=== PATIENT | male | born 1990 | race Caucasian/White ===

== ENCOUNTER → 2019-12-30 | Outpatient (CLI) | payer BC ==
[~2019-12-30] MED LIST: LISD30CA PO
== END ==
LOC: LAB FS 11:15
PROVIDERS: ATTEND Family Medicine
DX: Z20.828 Contact with and (suspected) exposure to other viral communicable diseases (principal)
CPT/HCPCS: 87635

== ENCOUNTER → 2020-05-05 | Outpatient (CLI) | payer BC ==
--- NOTE | 2020-05-06 09:30 | NUR ---
Notified of positive COVID test.
== END ==
LOC: LAB FS 10:00
PROVIDERS: ATTEND Family Medicine
DX: U07.1 COVID-19 (principal)
CPT/HCPCS: 87635

== ENCOUNTER 2022-06-01 12:57 | Emergency (ER) | payer BC ==
[~2022-06-01] VITALS: Ht 190 cm; Wt 129.0 kg
--- NOTE | 2022-06-01 13:18 | ED Chest Pain ---
General Chief Complaint: General Problems/Pain Stated Complaint: TIGHTNESS IN CHEST Nursing Triage Note: Patient has presented to ER with cc of chest pain and a cough. Patient reports a slight cough the past 2 days, his chest is sore and the pain is worse when he leans forward or when he coughs. He states that it feels like he needs to cough something out. He has taken a 325mg aspirin this morning. (ELIZABETH BOX) History of Present Illness Date Seen by Provider: Jun 01, 2022 Time Seen by Provider: 13:05 Initial Comments 31 yo male with pmhx of Factor 5 Melissa presents to clinic with chief complaint of chest tightness since 2229 last night. Pt reports that he was laying in bed and felt a dull tightening in his substernal region. He took Aspirin 325mg at the onset. 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 Reports he got worried based on hx medical hx so went to urgent care at 11:00am. EKG was done at clinic and was unremarkable. Clinic told him they could not rule out blood clots or do a further workout due to lack of equipment and tests at facility. Pt says he is here for further workup to make sure nothing more is going on. Denies any SOB, N/V, abdominal pain, LONGO. Pt has no flu like sx. No sick contacts. Pt is adopted so does not know if there is an hx of cardiac related dz in his biological family. No other complaints. Severity/Quality: dull Location: substernal Activities at Onset: none (ELIZABETH BOX) Initial Comments Patient has prior history of DVT from factor V Leiden and therefore takes a full aspirin daily. He took an extra aspirin today. (AMANDA FLETCHER MD) Allergies and Home Medications Allergies Coded Allergies: No Known Drug Allergies (Unverified , 09/05/11) Patient Home Medication List Home Medication List Reviewed: Yes (ELIZABETH BOX) Lisdexamfetamine Dimesylate (Vyvanse) 30 Mg Capsule, 30 MG PO DAILY, (Reported) Entered as Reported by: FILIBERTO HERRON on 08/30/11 1312 Review of Systems Review of Systems Constitutional: no symptoms reported EENTM: No Symptoms Reported Respiratory: No Symptoms Reported Cardiovascular: Chest Pain Gastrointestinal: No Symptoms Reported Genitourinary: No Symptoms Reported Musculoskeletal: no symptoms reported Skin: no symptoms reported Psychiatric/Neurological: No Symptoms Reported Endocrine: No Symptoms Reported Hematologic/Lymphatic: No Symptoms Reported (ELIZABETH BOX) All Other Systems Reviewed Negative Unless Noted: Yes (ELIZABETH BOX) Past Oifodsm-Wtjkwc-Qosryi Hx Patient Social History Tobacco Use?: No Use of E-Cig and/or Vaping dev: No Substance use?: No Alcohol Use?: Yes Alcohol Frequency: Once in a while (ELIZABETH BOX) Past Medical History Reproductive Disorders: No (ELIZABETH BOX) Physical Exam Vital Signs Vital Signs - First Documented 06/01/22 13:10 Temp 36.0 Pulse 104 Resp 16 B/P (MAP) 135/95 (108) Pulse Ox 98 O2 Delivery Room Air (AMANDA FLETCHER MD) Vital Signs Capillary Refill : (ELIZABETH BOX) Height, Weight, BMI Height: '" Weight: lbs. oz. kg; 35.00 BMI Method: General Appearance: No Apparent Distress, WD/WN HEENT: PERRL/EOMI, TMs Normal, Normal ENT Inspection, Pharynx Normal Neck: Full Range of Motion, Normal Inspection, Non Tender, Supple Respiratory: Chest Non Tender, Lungs Clear, Normal Breath Sounds, No Accessory Muscle Use, No Respiratory Distress Cardiovascular: Regular Rate, Rhythm, No Edema, No Gallop, No JVD, No Murmur, Normal Peripheral Pulses Gastrointestinal: Normal Bowel Sounds, No Organomegaly, No Pulsatile Mass, Non Tender, Soft Extremity: Normal Capillary Refill, Normal Inspection, Normal Range of Motion, Non Tender, No Calf Tenderness, No Pedal Edema Neurologic/Psychiatric: Alert, Oriented x3, No Motor/Sensory Deficits, Normal Mood/Affect, narrow fabric calenderer II-XII Norm as Tested Skin: Normal Color, Warm/Dry Lymphatic: No Adenopathy (ELIZABETH BOX) Progress/Results/Core Measures Results/Orders Lab Results Laboratory Tests Test 06/01/22 14:15 Range/Units White Blood Count 14.1 H 4.3-11.0 10^3/uL Red Blood Count 4.92 4.30-5.52 10^6/uL Hemoglobin 14.2 13.3-17.7 g/dL Hematocrit 42 40-54 % Mean Corpuscular Volume 84 80-99 fL Mean Corpuscular Hemoglobin 29 25-34 pg Mean Corpuscular Hemoglobin Concent 34 32-36 g/dL Red Cell Distribution Width 13.5 10.0-14.5 % Platelet Count 431 H 130-400 10^3/uL Mean Platelet Volume 9.3 9.0-12.2 fL Immature Granulocyte % (Auto) 1 % Neutrophils (%) (Auto) 75 42-75 % Lymphocytes (%) (Auto) 19 12-44 % Monocytes (%) (Auto) 4 0-12 % Eosinophils (%) (Auto) 2 0-10 % Basophils (%) (Auto) 1 0-10 % Neutrophils # (Auto) 10.5 H 1.8-7.8 10^3/uL Lymphocytes # (Auto) 2.6 1.0-4.0 10^3/uL Monocytes # (Auto) 0.6 0.0-1.0 10^3/uL Eosinophils # (Auto) 0.2 0.0-0.3 10^3/uL Basophils # (Auto) 0.1 0.0-0.1 10^3/uL Immature Granulocyte # (Auto) 0.1 0.0-0.1 10^3/uL Neutrophils % (Manual) 78 % Lymphocytes % (Manual) 12 % Monocytes % (Manual) 2 % Eosinophils % (Manual) 4 % Basophils % (Manual) 1 % Band Neutrophils 3 % Prothrombin Time 14.0 12.2-14.7 SEC INR Comment 1.0 0.8-1.4 Activated Partial Thromboplast Time 34 24-35 SEC D-Dimer 1.34 H 0.00-0.49 UG/ML Sodium Level 138 135-145 MMOL/L Potassium Level 3.8 3.6-5.0 MMOL/L Chloride Level 102 98-107 MMOL/L Carbon Dioxide Level 25 21-32 MMOL/L Anion Gap 11 5-14 MMOL/L Blood Urea Nitrogen 6 L 7-18 MG/DL Creatinine 0.79 0.60-1.30 MG/DL Estimat Glomerular Filtration Rate 122 BUN/Creatinine Ratio 8 Glucose Level 112 H 70-105 MG/DL Calcium Level 9.6 8.5-10.1 MG/DL Corrected Calcium 9.2 8.5-10.1 MG/DL Magnesium Level 2.4 1.6-2.4 MG/DL Total Bilirubin 0.7 0.1-1.0 MG/DL Aspartate Amino Transf (AST/SGOT) 24 5-34 U/L Alanine Aminotransferase (ALT/SGPT) 28 0-55 U/L Alkaline Phosphatase 83 40-136 U/L Myoglobin < 21.0 <72.0 NG/ML Troponin I < 0.30 <0.30 NG/ML Total Protein 7.9 6.4-8.2 GM/DL Albumin 4.5 3.2-4.5 GM/DL Influenza Type A (RT-PCR) Not Detected Not Detecte Influenza Type B (RT-PCR) Not Detected Not Detecte SARS-CoV-2 RNA (RT-PCR) Not Detected Not Detecte (AMANDA FLETCHER MD) My Orders Orders - AMANDA FLETCHER MD Ondansetron Oral Dissolve Tab (Zofran (06/01/22 13:30) Lidocaine 2% Viscous 15 Ml (Xylocaine Vi (06/01/22 13:30) Antacid Suspension (Mylanta Suspension (06/01/22 13:30) Cbc With Automated Diff (06/01/22 14:06) Magnesium (06/01/22 14:06) Chest 1 View Ap/Pa Only (06/01/22 14:06) Ekg Tracing (06/01/22 14:06) Comprehensive Metabolic Panel (06/01/22 14:06) Myoglobin Serum (06/01/22 14:06) Protime With Inr (06/01/22 14:06) Partial Thromboplastin Time (06/01/22 14:06) Monitor-Rhythm Ecg Trace Only (06/01/22 14:06) Ed Iv/Invasive Line Start (06/01/22 14:06) Fibrin Degradation Products (06/01/22 14:06) Troponin I Fs (06/01/22 14:06) Covid 19 Inhouse Test (06/01/22 14:07) Influenza A And B By Pcr (06/01/22 14:07) Manual Differential (06/01/22 14:15) Ct Angio Chest W (06/01/22 15:28) Iohexol Injection (Omnipaque 350 Mg/Ml 1 (06/01/22 15:45) Received Contrast (Hold Metformin- Contr (06/01/22 15:45) Sodium Chloride Flush (Catheter Flush Sy (06/01/22 15:45) Ns (Ivpb) (Sodium Chloride 0.9% Ivpb Bag (06/01/22 15:45) (AMANDA FLETCHER MD) Medications Given in ED (AMANDA FLETCHER MD) Vital Signs/I&O 06/01/22 06/01/22 13:10 17:49 Temp 36.0 36.0 Pulse 104 92 Resp 16 16 B/P (MAP) 135/95 (108) 132/86 Pulse Ox 98 100 O2 Delivery Room Air Room Air (AMANDA FLETCHER MD) Blood Pressure Mean: 108 Progress Progress Note #1: Time: 14:41 Progress Note Patient was interviewed and examined by me along with MS 3. Symptoms were suspicious for GERD based on history. Trial of GI cocktail did not alleviate his pain. We are therefore pursuing further evaluation for chest pain including D-dimer given his history of prior DVT and factor V Leiden. EKG was unremarkable. Progress Note #2: Time: 15:59 Progress Note D-Dimer was elevated. CTA has been performed and report is pending. Progress Note #3: Progress Note Masses were seen in the chest on CT scan. This was discussed with Dr. Noble Bonilla who will see the patient in the clinic tomorrow to arrange further necessary work-up. See discharge instructions for further discussion. (AMANDA FLETCHER MD) Initial ECG Impression Date: Jun 01, 2022 Initial ECG Impression Time: 14:27 Initial ECG Rate: 96 Initial ECG Rhythm: Normal Sinus Initial ECG Intervals: Normal Initial ECG Impression: Normal Comment Normal sinus rhythm with no ST elevation or depression. No abnormal intervals or axis deviation. (AMANDA FLETCHER MD) Diagnostic Imaging Diagonstic Imaging: Xray Plain Films/CT/US/NM/MRI: chest Comments Chest x-ray viewed by me and report reviewed. See report below: NAME: GILBERTO LOPEZ [facility] REC#: [id number] PT STATUS: REG ER : 1990 PHYSICIAN: AMANDA FLETCHER MD ADMIT DATE: 06/01/22/ER FS Signed Date of Exam:06/01/22 CHEST 1 VIEW AP/PA ONLY EXAMINATION: Chest, one view. HISTORY: Chest tightness. COMPARISON: None available. FINDINGS: Abnormal contour of the right heart border. Heart size and pulmonary vasculature are otherwise normal. The lungs are clear without consolidation, pleural effusion, or pneumothorax. The osseous structures are intact. IMPRESSION: 1. Abnormal contour of the right heart border. This could be better evaluated with CT of the chest. 2. No other acute abnormality in the chest. Dictated by: Dictated on workstation # [id number] Dict: 06/01/22 1455 Trans: 06/01/22 1501 [id number] Interpreted by: TARA VAZQUEZ DO Electronically signed by: TARA VAZQUEZ DO 06/01/22 1501 Diagonstic Imaging: CT Plain Films/CT/US/NM/MRI: chest Comments CT angiogram of the chest viewed by me and report reviewed. See report below: NAME: GILBERTO LOPEZ [facility] REC#: [id number] PT STATUS: REG ER : 1990 PHYSICIAN: AMANDA FLETCHER MD ADMIT DATE: 06/01/22/ER FS Draft Date of Exam:06/01/22 CT ANGIO CHEST W PROCEDURE: CT angiography of the chest with contrast. TECHNIQUE: Multiple contiguous axial images were obtained through the chest after uneventful bolus administration of intravenous contrast. 3D reconstructed CTA MIP acquisitions were also performed. Auto Exposure Controls were utilized during the CT exam to meet ALARA standards for radiation dose reduction. INDICATION: Chest pain and elevated D-dimer. COMPARISON: No prior studies are available for comparison. FINDINGS: Evaluation of the pulmonary arterial system is without evidence of thromboembolism. No definite filling defects are seen within central, lobar or segmental branches. Thoracic aorta is normal in caliber. There is no dissection. There is a mass noted along the right heart border correlating with the abnormality noted on a recent chest radiograph. This is likely mediastinal. This measures approximately 7.8 cm cephalocaudal x 8 cm AP x 6.2 cm transverse. This does appear to be of somewhat low density centrally which may contain some fluid versus necrosis. There are some enlarged lymph nodes in the mediastinum in the right paratracheal location. A femi mass measures approximately 3.3 x 2.7 cm. There are several additional smaller but enlarged lymph nodes elsewhere in the mediastinum. There also appears to be right hilar lymphadenopathy measuring 2.6 cm. Left hilum is unremarkable. There may be some enlarged lymph nodes in the supraclavicular regions bilaterally, greatest on the left. No axillary lymphadenopathy is detected. There is no pericardial or pleural fluid identified. No pulmonary infiltrates, nodules or masses are detected. Upper abdomen is unremarkable. IMPRESSION: 1. No evidence of pulmonary embolism or acute aortic disease. 2. Abnormal soft tissue mass along the right heart border, correlating with the contour abnormality noted on today's chest radiograph. In addition, there are enlarged femi masses in the mediastinum and right hilum. Features are concerning for neoplastic or lymphomatous process. CT of the abdomen and pelvis may be useful to evaluate for additional sites of femi disease. Dictated on workstation # [id number] Dict: 06/01/22 1558 Trans: 06/01/22 1615 [id number] Interpreted by: KIANA JACOBS MD (AMANDA FLETCHER MD) Departure Impression Primary Impression: Chest pain Qualified Codes: R07.9 - Chest pain, unspecified Additional Impression: Atypical chest pain Disposition: 01 HOME, SELF-CARE Condition: Stable Departure-Patient Inst. Decision time for Depature: 17:45 (AMANDA FLETCHER MD) Referrals: TYRESE DUTTA MD (PCP/Family) Primary Care Physician SASHA BONILLA MD Patient Instructions: CT Scan, Chest Add. Discharge Instructions: Abnormalities were seen on your CT scan including masses in the chest. The exact cause of these masses is uncertain, but they could represent a neoplastic (potentially cancerous) processes such as lymphoma. For pain you may take Tylenol (acetaminophen) up to 1000 mg every 6 hours as needed and/or ibuprofen up to 600 mg every 6 hours as needed. Drink plenty of clear liquids to stay well-hydrated. Eat a well-balanced healthy diet to maximize your overall health. Expect a phone call from Dr. Bonilla at the [facility] tomorrow morning between 9:00 and 10:00. If you do not hear from her by that time, please call the cancer center at the number below. She would like to arrange an appointment time for you to see her tomorrow. Return to the emergency room if you have worsening or new symptoms such as vomiting, escalating pain, fever, shortness of breath, etc. Also schedule an appointment with your primary care provider to keep her updated. All discharge instructions reviewed with patient and/or family. Voiced understanding. Medical Student Attestation and Attending Note: I have personally interviewed and examined this patient along with Elizabeth Box, MS 3. I have reviewed student documentation including history, physical, and ass essments. I agree with the documentation except where otherwise noted. Exam: General: Alert, oriented, no acute distress, well developed HEENT: Normocephalic and atraumatic Heart: Regular rate and rhythm without murmur, chest nontender to palpation Lungs: Clear to auscultation bilaterally with normal effort Abdomen: Soft, nontender, nondistended, normal bowel sounds Neuropsych: Alert, oriented, no focal deficits Extremities: No edema, no calf tenderness Skin: Warm and dry without rashes (AMANDA FLETCHER MD) Copy Copies To 1: SASHA BONILLA MD Copies To 2: TYRESE DUTTA MD, ANISHA T Jun 01, 2022 13:18 AMANDA FLETCHER MD Jun 01, 2022 14:44
[2022-06-01] MEDS ORDERED: ANTACID SUSP 30 ML UDC (MYLANTA) PO ONE (13:30)
[2022-06-01] MEDS ORDERED: ONDANSETRON 4 MG (ZOFRAN) ORAL DISSOLVE TAB SL STA (13:30)
[2022-06-01] MEDS ORDERED: LIDOCAINE 2% VISCOUS 15 ML UDC PO ONE (13:30)
[2022-06-01 14:21] LABS: BASOPHILS # (AUTO) 0.1 10^3/uL (0.0-0.1); BASOPHILS % (AUTO) 1 % (0-10); EOSINOPHILS # (AUTO) 0.2 10^3/uL (0.0-0.3); EOSINOPHILS % (AUTO) 2 % (0-10); HEMATOCRIT 42 % (40-54); HEMOGLOBIN 14.2 g/dL (13.3-17.7); LYMPHOCYTES # (AUTO) 2.6 10^3/uL (1.0-4.0); LYMPHOCYTES % (AUTO) 19 % (12-44); MEAN CORPUSCULAR HEMOGLOBIN 29 pg (25-34); MEAN CORPUSCULAR HGB CONC 34 g/dL (32-36); MEAN CORPUSCULAR VOLUME 84 fL (80-99); MEAN PLATELET VOLUME 9.3 fL (9.0-12.2); MONOCYTES # (AUTO) 0.6 10^3/uL (0.0-1.0); MONOCYTES % (AUTO) 4 % (0-12); NEUTROPHILS # (AUTO) 10.5 10^3/uL (1.8-7.8); NEUTROPHILS % (AUTO) 75 % (42-75); PLATELET COUNT 431 10^3/uL (130-400); WHITE BLOOD COUNT 14.1 10^3/uL (4.3-11.0)
[2022-06-01 14:43] LABS: CARBON DIOXIDE 25 MMOL/L (21-32); CHLORIDE 102 MMOL/L (98-107); POTASSIUM 3.8 MMOL/L (3.6-5.0); SODIUM 138 MMOL/L (135-145)
[2022-06-01 14:44] LABS: ALANINE AMINOTRANSFERASE 28 U/L (0-55); ALBUMIN 4.5 GM/DL (3.2-4.5); ALKALINE PHOSPHATASE 83 U/L (40-136); BILIRUBIN,TOTAL 0.7 MG/DL (0.1-1.0); BUN/CREATININE RATIO 8; CALCIUM 9.6 MG/DL (8.5-10.1); CREATININE SERUM 0.79 MG/DL (0.60-1.30); GFR ESTIMATED 122; GLUCOSE 112 MG/DL (70-105); MAGNESIUM 2.4 MG/DL (1.6-2.4); TOTAL PROTEIN 7.9 GM/DL (6.4-8.2)
[2022-06-01 14:54] LABS: BAND NEUTROPHILS 3 %; LYMPHOCYTES % (MANUAL) 12 %; MONOCYTES % (MANUAL) 2 %; NEUTROPHILS % (MANUAL) 78 %
[2022-06-01 14:55] LABS: BASOPHILS % (MANUAL) 1 %; EOSINOPHILS % (MANUAL) 4 %
--- NOTE | 2022-06-01 14:58 | Diagnostic Imaging Report ---
EXAMINATION: Chest, one view. HISTORY: Chest tightness. COMPARISON: None available. FINDINGS: Abnormal contour of the right heart border. Heart size and pulmonary vasculature are otherwise normal. The lungs are clear without consolidation, pleural effusion, or pneumothorax. The osseous structures are intact. IMPRESSION: 1. Abnormal contour of the right heart border. This could be better evaluated with CT of the chest. 2. No other acute abnormality in the chest. Dictated by: Dictated on workstation # [id number]
[2022-06-01] MEDS ORDERED: HOLD METFORMIN - RECEIVED CONTRAST 20 ML VIAL IV SCH (15:45)
[2022-06-01] MEDS ORDERED: CATHETER FLUSH 10 ML SYR IV PRN (15:45)
[2022-06-01] MEDS ORDERED: NS 100 ML (IVPB) BAG IV ONE (15:45)
[2022-06-01] MEDS ORDERED: IOHEXOL 350 MG/ML 100 ML (OMNIPAQUE 350) VIAL IV ONE (15:45)
--- NOTE | 2022-06-01 16:16 | Diagnostic Imaging Report ---
PROCEDURE: CT angiography of the chest with contrast. TECHNIQUE: Multiple contiguous axial images were obtained through the chest after uneventful bolus administration of intravenous contrast. 3D reconstructed CTA MIP acquisitions were also performed. Auto Exposure Controls were utilized during the CT exam to meet ALARA standards for radiation dose reduction. INDICATION: Chest pain and elevated D-dimer. COMPARISON: No prior studies are available for comparison. FINDINGS: Evaluation of the pulmonary arterial system is without evidence of thromboembolism. No definite filling defects are seen within central, lobar or segmental branches. Thoracic aorta is normal in caliber. There is no dissection. There is a mass noted along the right heart border correlating with the abnormality noted on a recent chest radiograph. This is likely mediastinal. This measures approximately 7.8 cm cephalocaudal x 8 cm AP x 6.2 cm transverse. This does appear to be of somewhat low density centrally which may contain some fluid versus necrosis. There are some enlarged lymph nodes in the mediastinum in the right paratracheal location. A femi mass measures approximately 3.3 x 2.7 cm. There are several additional smaller but enlarged lymph nodes elsewhere in the mediastinum. There also appears to be right hilar lymphadenopathy measuring 2.6 cm. Left hilum is unremarkable. There may be some enlarged lymph nodes in the supraclavicular regions bilaterally, greatest on the left. No axillary lymphadenopathy is detected. There is no pericardial or pleural fluid identified. No pulmonary infiltrates, nodules or masses are detected. Upper abdomen is unremarkable. IMPRESSION: 1. No evidence of pulmonary embolism or acute aortic disease. 2. Abnormal soft tissue mass along the right heart border, correlating with the contour abnormality noted on today's chest radiograph. In addition, there are enlarged femi masses in the mediastinum and right hilum. Features are concerning for neoplastic or lymphomatous process. CT of the abdomen and pelvis may be useful to evaluate for additional sites of femi disease. Dictated by: Dictated on workstation # [id number]
[2022-06-01 17:49] VITALS: BP 132/86
== END 2022-06-01 17:51 | disposition home or self-care (01) ==
LOC: EDUNIT# 12:57 → ER FS 13:00
DX: R07.89 Other chest pain (principal); I82.409 Acute embolism and thrombosis of unspecified deep veins of unspecified lower extremity; D68.51 Activated protein C resistance; Z79.82 Long term (current) use of aspirin; Z20.822 Contact with and (suspected) exposure to COVID-19
CPT/HCPCS: 36415; 71045; 71275; 80053; 83735; 83874; 84484; 85007; 85027; 85379; 85610; 85730; 87636; 93005; 93041; Q9967

== ENCOUNTER 2022-06-02 11:17 | Outpatient (RCR) | payer BC ==
[~2022-06-02 11:17] MED LIST changes: -CATHETER FLUSH 10 ML SYR IV PRN; -HOLD METFORMIN - RECEIVED CONTRAST 20 ML VIAL IV SCH; -IOHEXOL 350 MG/ML 100 ML (OMNIPAQUE 350) VIAL IV ONE; -NS 100 ML (IVPB) BAG IV ONE
[2022-06-07] MEDS ORDERED: ASPI-808 PO (09:25)
[2022-06-08] MEDS ORDERED: DOCU-143 PO (15:26)
[2022-06-08] MEDS ORDERED: ACHD5005 PO (15:26)
== END 2022-06-17 | disposition home or self-care (01) ==
LOC: ONC 11:17
PROVIDERS: ATTEND Internal Medicine Hematology & Oncology
DX: D68.51 Activated protein C resistance (principal); J98.59 Other diseases of mediastinum, not elsewhere classified; R59.0 Localized enlarged lymph nodes
CPT/HCPCS: 99204

== ENCOUNTER → 2022-06-02 | Outpatient (CLI) | payer BC ==
[~2022-06-02] MED LIST changes: +CATHETER FLUSH 10 ML SYR IV PRN; +HOLD METFORMIN - RECEIVED CONTRAST 20 ML VIAL IV SCH; +IOHEXOL 350 MG/ML 100 ML (OMNIPAQUE 350) VIAL IV ONE; +NS 100 ML (IVPB) BAG IV ONE
--- NOTE | 2022-06-02 13:11 | Diagnostic Imaging Report ---
PROCEDURE: CT abdomen and pelvis with contrast. TECHNIQUE: Multiple contiguous axial images were obtained through the abdomen and pelvis after administration of intravenous contrast. Auto Exposure Controls were utilized during the CT exam to meet ALARA standards for radiation dose reduction. All CT scans use one or more of the following dose optimizing techniques: automated exposure control, MA and/or KvP adjustment based on patient size and exam type or iterative reconstruction. INDICATION: Mediastinal adenopathy and masses. Spleen measures 14 cm AP with hilar thickness 6.4 cm and a cephalocaudal height of 14 cm is at the upper limits of normal and nonfocal. Liver is density is favored to reflect mild hepatic steatosis. No focal liver lesion. No hepatomegaly. The gallbladder absent. Pancreas and its duct normal. The adrenals are negative. Unobstructed kidneys normal. There is no small or large bowel wall thickening or obstruction. There is a normal appendix. There is no diverticulitis. The aorta is nonaneurysmal and patent. No mesenteric thrombus. No abdominal pelvic mesenteric or retroperitoneal lymphadenopathy. Pelvic sidewalls and inguinal canals unremarkable. The urinary bladder unremarkable. Prostate and seminal vesicles within normal limits. No suspicious or acute bony abnormality. IMPRESSION: Probable mild hepatic steatosis upper limits spleen size but no abdominal pelvic adenopathy, mass, ascites, obstructive features or other acute/suspicious findings. Dictated by: Dictated on workstation # [id number]
== END ==
LOC: RAD 12:30
PROVIDERS: ATTEND Internal Medicine Hematology & Oncology
DX: R59.0 Localized enlarged lymph nodes (principal); R19.00 Intra-abdominal and pelvic swelling, mass and lump, unspecified site
CPT/HCPCS: 74177

== ENCOUNTER 2022-06-07 09:05 | Outpatient (CLI) | payer BC ==
[~2022-06-07] VITALS: Ht 190.6 cm; Wt 104.0 kg
[2022-06-07] MEDS ORDERED: ASPI-808 PO (09:25)
[2022-06-08] MEDS ORDERED: ACHD5005 PO (15:26)
[2022-06-08] MEDS ORDERED: DOCU-143 PO (15:26)
== END 2022-06-07 09:53 | disposition home or self-care (01) ==
LOC: PREOP 09:05
PROVIDERS: ATTEND Surgery
DX: Z01.818 Encounter for other preprocedural examination (principal)

== ENCOUNTER 2022-06-08 11:11 | Day surgery (SDC) | payer BC ==
[2022-06-08] VITALS (10 sets, daily range): BP systolic 90–120; BP diastolic 61–87
[~2022-06-08] VITALS: Ht 190.5 cm; Wt 104.0 kg
[~2022-06-08 11:11] MED LIST changes: +ASPI-808 PO
--- NOTE | 2022-06-08 11:32 | Progress Note-Pre Operative ---
Pre-Operative Progress Note Date of Available H&P: Jun 06, 2022 Date H&P Reviewed: Jun 08, 2022 Time H&P Reviewed: 11:31 History & Physical: H&P Reviewed, Patient Examed, No changes noted Pre-Operative Diagnosis: left neck/supraclavicular mass JYOTI BROWNE DO Jun 08, 2022 11:32
[2022-06-08] MEDS ORDERED: LACTATED RINGERS 1,000 ML IV PRN (12:00)
[2022-06-08] MEDS ORDERED: ceFAZolin INJECTION 2,000 MG in NS (IVPB) 50 ML IV ONE (12:00)
[2022-06-08] MEDS ORDERED: BUP/EPI 0.25% 1:200,000 (MARCAINE) 30 ML VIAL ONE (12:41)
[2022-06-08] MEDS ORDERED: LIDOCAINE/EPI 1%-1:100,000 (XYLOCAINE) 30ML ONE (12:42)
[2022-06-08] MEDS ORDERED: SEVOFLURANE (ULTANE) 15 ML INHAL SOLN ONE ×2 (13:01→14:09)
[2022-06-08] MEDS ORDERED: LIDOCAINE PF 2% 5 ML (XYLOCAINE) VIAL ONE (13:01)
[2022-06-08] MEDS ORDERED: proPOfol 200 MG/20 ML (DIPRIVAN) VIAL IV ONE (13:01)
[2022-06-08] MEDS ORDERED: ONDANSETRON 4 MG/2 ML (SDV) Z0FRAN ONE (13:01)
[2022-06-08] MEDS ORDERED: MIDAZOLAM 2 MG/2 ML (VERSED) VIAL ONE (13:02)
[2022-06-08] MEDS ORDERED: fentaNYL INJ 100 MCG/2 ML AMP ONE (13:02)
--- NOTE | 2022-06-08 14:18 | Anesthesia-General Post-Op ---
General Patient Condition Mental Status/LOC: Same as Preop Cardiovascular: Satisfactory Nausea/Vomiting: Absent Respiratory: Satisfactory Pain: Controlled Complications: Absent Post Op Complications Complications None Follow Up Care/Instructions Patient Instructions None needed. Anesthesia/Patient Condition Patient Condition Patient is doing well, no complaints, stable vital signs, no apparent adverse anesthesia problems. No complications reported per nursing. AVERY SCHWARZ CRNA Jun 08, 2022 14:18
[2022-06-08] MEDS ORDERED: DOCU-143 PO (15:26)
[2022-06-08] MEDS ORDERED: ACHD5005 PO (15:26)
--- NOTE | 2022-06-08 15:28 | Discharge Inst-Simple/Standard ---
Discharge Inst-Standard Discharge Medications New, Converted or Re-Newed RX: Transmitted to Pharmacy Patient Instructions/Follow Up Plan of Care/Instructions/FU: 2 weeks soto Activity as Tolerated: No Discharge Diet: Regular Diet Other Inst to Patient Follow up Appt: Make appointment for 2 week. Instructions: No strenuous activity. May shower in 24 hours, no tub bath or soaking. Use incentive spirometer at home as directed. No Smoking Skin/Wound Care: You have special glue over your incision that will fall off on it's own. Symptoms to Report: Appetite Changes, Extremity Discoloration, Numbness/Tingling, Swelling Increased, Bleeding Excessive, Eyesight Changes, Pain Increased, Urine Color Change, Constipation(Persistent), Fever over 101 degree F, Pain/Pressure in chest, Urinating Difficulty, Cough Up/Vomit Blood, Heart Beat Irreg/Pounding, Pain/Pressure in jaw, Vaginal Bleeding Increase, Cramps in feet or legs, Lightheadedness, Pain/Pressure in shoulder, Diarrhea(Persistent), Memory Changes Suddenly, Questions/Concerns, Weight gain consecutive days, Dizziness/Fainting, Nausea/Vomiting, Shortness of Breath, Weight gain over 2 pounds If questions or concerns contact your physician Or seek help at emergency department. JYOTI BROWNE DO Jun 08, 2022 15:27
--- NOTE | 2022-06-08 23:18 | OPERATIVE REPORT ---
DATE OF SERVICE: 06/08/2022 PREOPERATIVE DIAGNOSIS: Left neck/supraclavicular mass. POSTOPERATIVE DIAGNOSIS: Left neck/supraclavicular mass. PROCEDURE: Excision of left neck supraclavicular mass. SURGEON: Jyoti Garcia DO ANESTHESIA: General. ESTIMATED BLOOD LOSS: Minimal. COMPLICATIONS: None. INDICATIONS: The patient is a 31-year-old male who has factor V Leiden. He was having some chest discomfort and thought he could have had a pulmonary embolism, so he went to the emergency department for further evaluation. A CT scan demonstrating a large mass to the right side of the heart and also some mediastinal lymphadenopathy. On exam, he was found to have left neck/supraclavicular mass, which is being tissue for pathology. He was recommended to have excision of the mass in the left neck/supraclavicular area. He understands the risks and benefits and wishes to proceed. Consent was signed and on chart. DESCRIPTION OF PROCEDURE: The patient was taken to the operating suite where he was prepped and draped in sterile fashion. Timeout was performed. Local anesthetic was infiltrated in the subcutaneous tissues. A 15 blade scalpel was used to make a skin incision over the palpable mass. The cautery and blunt dissection along using hemostats was used to dissect around the mass, which then was able to be removed. The wound was then irrigated with water. Hemostasis was achieved. The specimen was sent fresh. The subcutaneous tissues were then reapproximated using 3-0 Vicryl. The skin was then closed using Skin Affix. The patient tolerated the procedure well without complications, taken to recovery room in stable condition. Job ID: [id number] DocumentID: [id number] Dictated Date: 06/08/2022 21:29:35 Cardiac Tech Date: 06/08/2022 23:16:00 Dictated By: JYOTI GARCIA DO
== END 2022-06-08 16:20 | disposition home or self-care (01) ==
LOC: SDC 11:11
PROVIDERS: ATTEND Surgery
DX: R22.1 Localized swelling, mass and lump, neck (principal); R59.0 Localized enlarged lymph nodes; D68.51 Activated protein C resistance; Z79.02 Long term (current) use of antithrombotics/antiplatelets
CPT/HCPCS: 87081

== ENCOUNTER 2022-06-20 06:07 | Outpatient (CLI) | payer BC ==
[~2022-06-20] VITALS: Ht 190.5 cm; Wt 100.0 kg
[~2022-06-20 06:07] MED LIST changes: +ACHD5005 PO; +DOCU-143 PO
[2022-06-20] MEDS ORDERED: PANT40TA2 PO (09:28)
== END 2022-06-20 09:48 | disposition home or self-care (01) ==
LOC: PREOP 06:07
PROVIDERS: ATTEND Surgery
DX: Z01.818 Encounter for other preprocedural examination (principal)

== ENCOUNTER 2022-06-23 10:23 | Day surgery (SDC) | payer BC ==
[~2022-06-23] VITALS: Ht 190.5 cm; Wt 100.0 kg
[~2022-06-23 10:23] MED LIST changes: +PANT40TA2 PO
[2022-06-23] MEDS ORDERED: LACTATED RINGERS 1,000 ML IV PRN (11:00)
[2022-06-23] MEDS ORDERED: ceFAZolin INJECTION 2,000 MG in NS (IVPB) 50 ML IV ONE (11:00)
[2022-06-23 11:03] VITALS: BP 107/84
[2022-06-23] MEDS ORDERED: HEParin (CENTRAL IV FLUSH) 500 UNIT/5 ML SYR ONE (11:49)
[2022-06-23] MEDS ORDERED: LIDOCAINE/EPI 1%-1:100,000 (XYLOCAINE) 30ML ONE (11:49)
[2022-06-23] MEDS ORDERED: 0.9% SODIUM CHLORIDE PF INJ 20 ML VIAL ONE (11:49)
[2022-06-23] MEDS ORDERED: MIDAZOLAM 2 MG/2 ML (VERSED) VIAL ONE (12:48)
[2022-06-23] MEDS ORDERED: PROPOFOL INJECTION 50 ML IV ONE (13:23)
[2022-06-23 13:31] VITALS: BP 111/70
--- NOTE | 2022-06-23 13:35 | Anesthesia-General Post-Op ---
MAC Patient Condition Mental Status/LOC: Same as Preop Cardiovascular: Satisfactory Nausea/Vomiting: Absent Respiratory: Satisfactory Pain: Controlled Complications: Absent Post Op Complications Complications None Follow Up Care/Instructions Patient Instructions None needed. Anesthesiology Discharge Order Discharge Order Patient is doing well, no complaints, stable vital signs, no apparent adverse anesthesia problems. No complications reported per nursing. AVERY SCHWARZ CRNA Jun 23, 2022 13:35
--- NOTE | 2022-06-23 13:38 | Diagnostic Imaging Report ---
Indication: Port-A-Cath placement. Fluoroscopic guidance. Comparison: None Total fluoroscopy time: 17 seconds Total number fluoroscopic images saved: 1 Findings: Single intraoperative image intensifier view the right chest was obtained during Port-A-Cath placement. Image provided shows right internal jugular venous approach. Central tip terminates within the high SVC. Evaluation for pneumothorax is suboptimal due to fluoroscopic modality. Please note, interpreting radiologist was not present during the procedure. Impression: 1. Fluoroscopic guidance provided during Port-A-Cath placement. Dictated by: Dictated on workstation # [id number]
[2022-06-23 13:40] VITALS: BP 103/66
--- NOTE | 2022-06-23 13:41 | Discharge Inst-Simple/Standard ---
Discharge Inst-Standard Patient Instructions/Follow Up Plan of Care/Instructions/FU: 2 weeks Jose Activity as Tolerated: No Discharge Diet: Regular Diet Other Inst to Patient Follow up Appt: Make appointment for 2 week. Instructions: No lifting greater than 10 pounds. No strenuous activity. May shower in 24 hours, no tub bath or soaking. Use incentive spirometer at home as directed. No Smoking Skin/Wound Care: You have special glue over your incision that will fall off on it's own. Ice pack on 15 min off 30 min and repeat for first 48 hours. Symptoms to Report: Appetite Changes, Extremity Discoloration, Numbness/Tingling, Swelling Increased, Bleeding Excessive, Eyesight Changes, Pain Increased, Urine Color Change, Constipation(Persistent), Fever over 101 degree F, Pain/Pressure in chest, Urinating Difficulty, Cough Up/Vomit Blood, Heart Beat Irreg/Pounding, Pain/Pressure in jaw, Vaginal Bleeding Increase, Cramps in feet or legs, Lightheadedness, Pain/Pressure in shoulder, Diarrhea(Persistent), Memory Changes Suddenly, Questions/Concerns, Weight gain consecutive days, Dizziness/Fainting, Nausea/Vomiting, Shortness of Breath, Weight gain over 2 pounds If questions or concerns contact your physician Or seek help at emergency department. JYOTI BROWNE DO Jun 23, 2022 13:41
[2022-06-23] MEDS ORDERED: fentaNYL INJ 100 MCG/2 ML AMP IVP ONE (13:45)
[2022-06-23] MEDS ORDERED: ONDANSETRON 4 MG/2 ML (SDV) Z0FRAN IVP PRN (13:45)
[2022-06-23 13:50] VITALS: BP_SYST 101; BP_SYST 118; BP_DIAS 70; BP_DIAS 71
--- NOTE | 2022-06-23 14:00 | Diagnostic Imaging Report ---
INDICATION: Port-A-Cath placement. EXAMINATION: Portable chest at 01:53 p.m. FINDINGS: Right IJ Port-A-Cath tip projects over the SVC. Heart size and pulmonary vascularity are normal. Lungs are clear. There are no effusions or pneumothoraces. There is fullness of the right hilum, consistent with a soft tissue mass. There is widening of the right paratracheal space also. IMPRESSION: Port-A-Cath tip projects over the SVC. There appears to be right hilar and right paratracheal mediastinal lymphadenopathy. Dictated by: Dictated on workstation # [id number]
[2022-06-23 14:20] VITALS: BP 124/72
--- NOTE | 2022-06-23 14:32 | Progress Note-Post Operative ---
Post-Operative Progess Note Surgeon (s)/Targeteer (s) Surgeon JYOTI BROWNE DO Targeteer: na Pre-Operative Diagnosis [facility] LY[facility] Post-Operative Diagnosis same Procedure & Operative Findings Date of Procedure 06/23/22 Procedure Performed/Findings PROCEDURE: Right internal jugular port placement using ultrasound guidance. COMPLICATIONS: None. INDICATIONS: The patient is a 31 year old male needing port. Patient understands the risks and benefits of port placement and wished to proceed with the procedure. Consent was signed on the chart. PROCEDURE: The patient was taken to the operating suite, was prepped and draped in the sterile fashion. A surgical pause was performed. Ultrasound was used to locate the internal jugular vein. Once located anesthetic was infiltrated above it. Using micro-access kit, the right internal vein was accessed. Dark nonpulsatile blood was withdrawn. The wire was inserted. Fluoroscopy assured proper placement. The needle was removed. The micro-access dilator was advanced over the wire and the wire was removed. The regular wire was inserted and fluoroscopy assured proper placement. The wire was then secured. Local anesthetic was used to anesthetize from the neck for tunneling down to the right chest and for pocket creation. A 15 blade scalpel was used to make an incision over the right chest. Cautery was used to dissect down to the pectoral fascia. A pocket was created with blunt dissection. The dilator sheath was then advanced over the wire under fluoroscopy and the dilator and wire were removed. The Groshong catheter was inserted through the sheath and the sheath was then removed. The Gro[place]ong wire was removed. The catheter was then tunneled to the right chest pocket. Fluoroscopy was used to cut to length and this was then attached to the port which was then placed within the pocket. The port was then accessed without difficulty. It was then flushed with saline and then heparin. The subcutaneous tissues were then reapproximated using 3-0 Vicryl. The areas were then washed and dried. Skin Affix was placed over incision. The insertion point of the neck Skin Affix was placed over the incision. The patient tolerated the procedure well without complication and was taken to recovery room in stable condition. Chest x-ray is pending. Anesthesia Type mac c local Estimated Blood Loss Estimated blood loss (mL): minimal Specimens/Packing Specimens Removed JYOTI Kilpatrick DO Jun 23, 2022 14:32
[2022-06-23 14:40] VITALS: BP 124/72
== END 2022-06-23 14:40 | disposition home or self-care (01) ==
LOC: SDC 10:23
PROVIDERS: ATTEND Surgery
DX: C81.90 Hodgkin lymphoma, unspecified, unspecified site (principal); D68.51 Activated protein C resistance; Z79.02 Long term (current) use of antithrombotics/antiplatelets; Z79.82 Long term (current) use of aspirin
CPT/HCPCS: 36561; 71045; 76000; 87081; C1788

== ENCOUNTER 2022-07-19 11:30 | Emergency (ER) | payer BC ==
[~2022-07-19] VITALS: Ht 190.5 cm; Wt 93.0 kg
[2022-07-19] MEDS ORDERED: NS IV 1000 ML 1,000 ML IV STA ×2 (11:35→13:17)
[2022-07-19] MEDS ORDERED: ONDANSETRON 4 MG/2 ML (SDV) Z0FRAN IVP STA (11:55)
[2022-07-19] MEDS ORDERED: ACETAMINOPHEN 500 MG TAB (TYLENOL) PO STA (11:55)
[2022-07-19] MEDS ORDERED: CEFEPIME INJECTION 1,000 MG in NS (IVPB) 50 ML IV STA (11:55)
--- NOTE | 2022-07-19 11:59 | ED General ---
General Chief Complaint: General Problems/Pain Stated Complaint: FEVER; GEN WEAKNESS; ABSCESS Source of Information: Patient, Family (parents) History of Present Illness Date Seen by Provider: Jul 19, 2022 Time Seen by Provider: 11:38 Initial Comments 31 yo male presenting with family due to concerns for abscess on his left buttock and perineal area. He had a fever up to 103 at home today as well. He is undergoing chemotherapy for Hodgkins Lymphoma and had his 2nd round of Chemother apy on July 13. Sunday he started having pain and progressive swelling to the perineal and left buttock area. He denies any drainage. With his fever they came to the ED to be evaluated out of concern for neutropenic fever and sepsis with abscess to his buttock. He has not had other health problems until being diagnosed with lymphoma in the last few months. He has been having chills, dry heaves, abdominal aching pain and cramping pain. He denies cough, nasal drainage, chest pain, pain with urination. He did have diarrhea after the first round of Chemotherapy on June 29. Hodgkins Lymphoma was diagnosed after biopsy of lung mass found in May 2022. Official diagnosis on Jun 16, 2022. The fever and abscess with perirectal pain is a new acute issue and potentially life threatening with him having signs of sepsis with his vital signs and especially if he has neutropenia from his recent chemotherapy. Timing/Duration: 4-5 Days Severity: Moderate Modifying Factors: worse with Movement (activity and movement makes his heart rate go up) Associated Systoms: No Chest Pain, No Cough, No Diaphoresis; Fever/Chills, Loss of Appetite, Malaise, Nausea/Vomiting (dry heaves); No Seizure, No Shortness of Air, No Syncope; Weakness Allergies and Home Medications Allergies Coded Allergies: No Known Drug Allergies (Unverified , 06/20/22) Patient Home Medication List Home Medication List Reviewed: Yes Aspirin (Aspirin) 325 Mg Tablet, 325 MG PO, (Reported) Entered as Reported by: GARIMA VEGA on 06/07/22 09 Pantoprazole Sodium (Protonix) 40 Mg Tablet.dr, 40 MG PO DAILY, (Reported) Entered as Reported by: TYRESE VALLE on 06/20/22 0928 Review of Systems Review of Systems Constitutional: chills, dizziness, fever, malaise EENTM: no symptoms reported Respiratory: no symptoms reported Cardiovascular: palpitations Gastrointestinal: see HPI Genitourinary: no symptoms reported Musculoskeletal: no symptoms reported Skin: change in color (red tender area to left buttock and perineal area) Psychiatric/Neurological: No Symptoms Reported Past Eotcbad-Tmrjxk-Ofnnls Hx Patient Social History Tobacco Use?: No Use of E-Cig and/or Vaping dev: No Substance use?: No Alcohol Use?: No Immunizations Up To Date First/Initial COVID19 Vaccinat: 2020 Second COVID19 Vaccination Siva: 2020 Third COVID19 Vaccination Date: a Seasonal Allergies Seasonal Allergies: No Past Medical History Surgery/Hospitalization HX: Hodgkin's Lymphoma, Perirectal abscess with sepsis 07/19/2022 Surgeries: Yes (LEFT ARM SX, WISDOM TEETH) Gallbladder, Orthopedic Respiratory: No Currently Using CPAP: No Currently Using BIPAP: No Cardiac: No Neurological: No Reproductive Disorders: No Sexually Transmitted Disease: No Genitourinary: No Gastrointestinal: No Musculoskeletal: Yes (LEFT ARM FX) Fractures Endocrine: No HEENT: Yes (GLASSES) Cancer: Yes (HODGKINS LYMPHOMA) Did You Recieve Any Treatments: Yes Psychosocial: Yes ADD/ADHD, Anxiety Integumentary: Yes (MASS IN CLAVICULAR REGION 05/2022) 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 oz. kg; 27.55 BMI Method: General Appearance: Anxious, Moderate Distress (appears to not feel well) Eyes: Bilateral Eye PERRL, Bilateral Eye EOMI HEENT: No Moist Mucous Membranes (slightly dry mucous membranes) Neck: Full Range of Motion, Normal Inspection, Non Tender, Supple Respiratory: Chest Non Tender, Lungs Clear, Normal Breath Sounds, No Accessory Muscle Use, No Respiratory Distress Cardiovascular: Normal Peripheral Pulses, Tachycardia (rate 150s sinus) Gastrointestinal: Normal Bowel Sounds, No Pulsatile Mass, Soft; No Distended, No Guarding, No Rebound; Tenderness (diffuse mild cramping pain to abdomen) Rectal: Deferred Genital/Rectal: Other (left buttock and perineal area with erythema, increased warmth and tender to palpation with induration) Extremity: Normal Capillary Refill, Normal Inspection, No Pedal Edema Neurologic/Psychiatric: Alert, Oriented x3, drywall hanger II-XII Norm as Tested Skin: Warm/Dry, Erythema (left buttock and perineal area erythematous with induration and increased warmth. Tender to palpation) Focused Exam Sepsis Stage: Sepsis Possible Source: Skin/Soft Tissue Lactate Level 07/19/22 12:21: Lactic Acid Level 1.72 Time of Focused Exam: 13:45 Respiratory: Chest Non Tender, Lungs Clear, Normal Breath Sounds, No Accessory Muscle Use, No Respiratory Distress Cardiovascular: Normal Peripheral Pulses, Tachycardia Capillary Refill: Less Than 3 Seconds Peripheral Pulses: 2+ Carotid (R), 2+ Carotid (L), 2+ Radial Pulses (R), 2+ Radial Pulses (L) Skin: normal color, warm/dry Lactic Acid Level Laboratory Tests Test 07/19/22 12:21 Lactic Acid Level 1.72 MMOL/L (0.50-2.00) Within 3hrs of presentation: Admin fluids, Admin ABX, Blood cultures prior to ABX's, Focus exam, Lactate level, Other (consider Levophed if his blood pressure continues to stay down despite IV fluids) Progress/Results/Core Measures Suspected Sepsis SIRS Temperature: Pulse: Respiratory Rate: Laboratory Tests 07/19/22 12:21: White Blood Count 0.8*L Blood Pressure / Mean: 07/19/22 12:21: Lactic Acid Level 1.72 Laboratory Tests 07/19/22 12:21: Creatinine 0.69, Platelet Count 299, Total Bilirubin 2.3H Results/Orders Lab Results Laboratory Tests Test 07/19/22 12:21 07/19/22 15:00 07/19/22 15:06 Range/Units White Blood Count 0.8 *L 4.3-11.0 10^3/uL Red Blood Count 3.49 L 4.30-5.52 10^6/uL Hemoglobin 9.8 L 13.3-17.7 g/dL Hematocrit 27 L 40-54 % Mean Corpuscular Volume 77 L 80-99 fL Mean Corpuscular Hemoglobin 28 25-34 pg Mean Corpuscular Hemoglobin Concent 36 32-36 g/dL Red Cell Distribution Width 13.2 10.0-14.5 % Platelet Count 299 130-400 10^3/uL Mean Platelet Volume 10.0 9.0-12.2 fL Immature Granulocyte % (Auto) 0 % Neutrophils (%) (Auto) 37 L 42-75 % Lymphocytes (%) (Auto) 50 H 12-44 % Monocytes (%) (Auto) 12 0-12 % Eosinophils (%) (Auto) 0 0-10 % Basophils (%) (Auto) 1 0-10 % Neutrophils # (Auto) 0.3 L 1.8-7.8 10^3/uL Lymphocytes # (Auto) 0.4 L 1.0-4.0 10^3/uL Monocytes # (Auto) 0.1 0.0-1.0 10^3/uL Eosinophils # (Auto) 0.0 0.0-0.3 10^3/uL Basophils # (Auto) 0.0 0.0-0.1 10^3/uL Immature Granulocyte # (Auto) 0.0 0.0-0.1 10^3/uL Sodium Level 130 L 135-145 MMOL/L Potassium Level 3.5 L 3.6-5.0 MMOL/L Chloride Level 92 L 98-107 MMOL/L Carbon Dioxide Level 23 21-32 MMOL/L Anion Gap 15 H 5-14 MMOL/L Blood Urea Nitrogen 8 7-18 MG/DL Creatinine 0.69 0.60-1.30 MG/DL Estimat Glomerular Filtration Rate 127 BUN/Creatinine Ratio 12 Glucose Level 135 H 70-105 MG/DL Lactic Acid Level 1.72 0.50-2.00 MMOL/L Calcium Level 8.7 8.5-10.1 MG/DL Corrected Calcium 9.1 8.5-10.1 MG/DL Total Bilirubin 2.3 H 0.1-1.0 MG/DL Aspartate Amino Transf (AST/SGOT) 55 H 5-34 U/L Alanine Aminotransferase (ALT/SGPT) 56 H 0-55 U/L Alkaline Phosphatase 62 40-136 U/L C-Reactive Protein 19.21 H <0.50 MG/DL Total Protein 6.3 L 6.4-8.2 GM/DL Albumin 3.5 3.2-4.5 GM/DL Urine Color YELLOW Urine Clarity CLEAR Urine pH 6.0 5-9 Urine Specific Hodgen <=1.005 1.016-1.022 Urine Protein NEGATIVE NEGATIVE Urine Glucose (UA) NEGATIVE NEGATIVE Urine Ketones NEGATIVE NEGATIVE Urine Nitrite POSITIVE H NEGATIVE Urine Bilirubin NEGATIVE NEGATIVE Urine Urobilinogen 0.2 < = 1.0 MG/DL Urine Leukocyte Esterase NEGATIVE NEGATIVE Urine RBC (Auto) NEGATIVE NEGATIVE Urine RBC NONE /HPF Urine WBC 0-2 /HPF Urine Squamous Epithelial Cells RARE /HPF Urine Crystals NONE /LPF Urine Bacteria TRACE /HPF Urine Casts NONE /LPF Urine Mucus NEGATIVE /LPF Urine Culture Indicated YES Influenza Type A (RT-PCR) Not Detected Not Detecte Influenza Type B (RT-PCR) Not Detected Not Detecte SARS-CoV-2 RNA (RT-PCR) Not Detected Not Detecte My Orders Orders - VIKI OROZCO MD Cbc With Automated Diff (07/19/22 11:35) Comprehensive Metabolic Panel (07/19/22 11:35) Blood Culture (07/19/22 11:35) Ua Culture If Indicated (07/19/22 11:35) Ed Iv/Invasive Line Start (07/19/22 11:35) Crp Fs (07/19/22 11:35) Lactic Acid Analyzer (07/19/22 11:35) Monitor-Rhythm Ecg Trace Only (07/19/22 11:35) Ns Iv 1000 Ml (Sodium Chloride 0.9%) (07/19/22 11:35) Cefepime Injection (Maxipime Injection) (07/19/22 11:55) Ondansetron Injection (Zofran Injectio (07/19/22 11:55) Acetaminophen Tablet (Tylenol Tablet) (07/19/22 11:55) Ct Abdomen/Pelvis W (07/19/22 12:05) Chest 1 View Ap/Pa Only (07/19/22 12:05) Iohexol Injection (Omnipaque 350 Mg/Ml 1 (07/19/22 13:00) Received Contrast (Hold Metformin- Contr (07/19/22 13:00) Ns (Ivpb) (Sodium Chloride 0.9% Ivpb Bag (07/19/22 13:00) Ns Iv 1000 Ml (Sodium Chloride 0.9%) (07/19/22 13:17) Metronidazole 500mg/100ml Ivpb (Flagyl 5 (07/19/22 13:55) Levofloxacin 750 Mg/150 Ml Iv (Levaquin (07/19/22 13:55) Lactated Ringers (Lr 1000 Ml Iv Solution (07/19/22 13:55) Covid 19 Inhouse Test (07/19/22 14:57) Influenza A And B By Pcr (07/19/22 14:57) Isolation Central Supply Req (07/19/22 14:57) Urine Culture (07/19/22 15:00) Ketorolac Injection (Toradol Injection) (07/19/22 15:25) Lactated Ringers (Lr 1000 Ml Iv Solution (07/19/22 16:00) Norepinephrine 8 Mg/250 Ml (Norepinephri (07/19/22 16:00) Medications Given in ED Current Medications Medications Dose Ordered Sig/Suzanna Route Start Time Stop Time Status Last Admin Dose Admin Iohexol 100 ml ONCE ONCE IV 07/19/22 13:00 07/19/22 13:01 DC 07/19/22 13:14 80 ML Sodium Chloride 100 ml ONCE ONCE IV 07/19/22 13:00 07/19/22 13:01 DC 07/19/22 13:14 100 ML Vital Signs/I&O 07/19/22 07/19/22 07/19/22 07/19/22 11:33 12:09 16:10 16:59 Temp 37.1 38.2 36.6 Pulse 150 121 84 Resp 16 17 B/P (MAP) 112/87 (95) 84/46 123/87 Pulse Ox 100 O2 Delivery Room Air Room Air Capillary Refill : Progress Note #1: Progress Note Potential life-threatening conditions of sepsis, neutropenic fever, perirectal abscess, dehydration, renal failure, hepatic failure, electrolyte imbalance from chemotherapy. Access his power port to obtain labs and administer IVF for hydration to help his tachycardia. Send labs for complete blood count, comprehensive metabolic profile, blood cultures, lactic acid, urinalysis. Placed on cardiac vehicle monitor technician to keep track of his heart rate and rhythm. On my interpretation of his initial cardiac telemetry monitoring he shows sinus tachycardia with a heart rate of 152. His initial temperature was 38.2. His blood pressure was varying from 90-112 systolic. After his blood cultures are drawn we will order cefepime 1 g IV for potential neutropenic fever. Normal saline 1 L IV fluid bolus to start treating his tachycardia and likely dehydration with sepsis. CT scan of his abdomen and pelvis with IV contrast to further evaluate the perineal and perirectal induration and erythematous area for possible abscess and help for it extends. Zofran 4 mg IV x1 to help with nausea and is dry heaves. After the dry heaves are getting better administer acetaminophen 1 g p.o. To help with his fever. Progress Note #2: Progress Note 1159 I called and spoke with Dr. Leslie with oncology about the patient. He has managing his treatment for the Hodgkin's lymphoma. I updated him about his vital signs and presentation with concern for perirectal abscess. At this point I did not have any labs back to speak with him about. Will check back once we have more test results and see what his blood counts are showing. He was concerned that the patient might need a larger Medical Center such as [facility] or someplace in [place] rather than admission to [place]. He felt like he might need a colorectal surgeon if he did have a perirectal abscess as well as ICU management for his sepsis. 1319 patient's lab was showing continued signs of sepsis without acute organ dysfunction. His complete blood count showed a total white blood cell count of 0.8 with 37% Neutrophils for ANC of 300. As heart rate is showing improvement as he was getting IV fluids for hydration. Initially was at 150 and as the normal saline 1 L IV fluid bolus was administered and he had improvement down into the 120s. Ordered a second liter of fluid and continue to monitor on cardiac telemetry monitoring. His temperature had come down from 38.2-37.1 with the acetaminophen and IV fluids. I called Dr. Leslie again to update him about how the patient was doing and reviewed labs as well as vital signs. Since patient is showing signs of sepsis with soft blood pressure Dr. Watts still felt that a larger facility such as where he has previously been seen for a second opinion would be a good option. He felt that his work and administrative services officer would not have the services the patient needed. 1355 I personally reviewed and interpreted as 1 view chest x-ray as no acute infiltrate. He does have a port in place now on the right side comparing to his previous chest x-ray. His lactic acid did come back at 1.7 which is encouraging with his lactic acid not being elevated as he is neutropenic and septic with hypotension. He did not show acute renal failure or hepatic failure on his comprehensive metabolic profile. He had mild hyponatremia with a sodium of 130. His potassium was okay at 3.5 which was at the lower limit of normal. He had continue to fluctuate on his blood pressures from 80 up to 110 for his systolic pressures. He did seem to be improving as the antibiotics and fluids were infusing. His CT scan of the abdomen and pelvis on my personal review and interpretation showed a large abscess in his perirectal and left buttock area. There are air pockets in the abscess and tissue. Call placed to [facility] transfer center at 1355 to see about trying to initiate transfer of patient since the patient has been seen at for oncology consult even though his oncology treatments are local here in [facility] with Dr. Watts. I spoke with STEVE Witt, at the transfer center. I reviewed the physical exam findings as well as labs and CT scanning of the abdomen and pelvis signs of neutropenia with sepsis and hypotension. She took his basic information and will talk to the transfer doctor and then call back. 1404 I called to update Dr. Leslie again about the patient's current condition and plan to go to [facility]. 1419 [facility] called back stating that they were at capacity and did not have the capability or capacity currently to accept the patient in transfer. They had to decline accepting the patient for transfer. I informed the patient and family and they wanted me to check with Dr. Watts about where he would recommend the patient go since [facility] was not an option. I did call Dr. Leslie again and spoke with him about the patient and not having any capability or capacity currently to take the patient. He maintained his initial opinion that he would be better served in the [place] area had been trying to stay locally or go to [place]. He did not have a specific preference between [facility] or [facility]. Will add on Levaquin 750 mg IV and Flagyl 500 mg IV for broader coverage after reviewing Radiologist reading of the CT scan of Abdomen/pelvis with IV contrast showed large irregular abscess in left buttock, perineal area, perirectal area measuring 10.9 cm x 8.2 cm x 11.1 cm and extending between rectum and urethra. Ordered 3rd Liter of IVF for hydration as 1 Liter of LR bolus. Patient continues to be stable but has blood pressures fluctuating between 80s systolic to 110 systolic. 1422 page placed to [facility] transfer center and I spoke with STEVE Jamil. She connected me with the transfer physician Dr. Mario Rasheed and I reviewed the labs, physical presentation, CT scan findings with him. He took that information and will check to see if they have any ICU beds within the [facility] system. 1439 STEVE Jamil, and Dr. Mario Rasheed from [facility] transfer center called back stating that they did not have any beds available [facility]. 1451 I called the [facility] access center about possible transfer. I spoke with STEVE Garay, and he took some basic information about the patient. He stated that they did not have ICU beds at [facility] so he connected me with the hospitalist nurse practitioner, Reece Gonzalez. I reviewed with the nurse practitioner about the patient's presentation his labs and abnormalities showing sepsis as well as a perirectal abscess. He was advised that we were trying to get him transferred to have a facility that would have ICU, colorectal surgeon, oncology. I discussed with him about the medications and fluids that have been given so far. He may require Levophed if his blood pressures stay under 100. At 1504, He did accept on behalf of the hospitalist Dr. Vergara. STEVE Garay, will call back with room assignment. They did request a Covid swab on him as well. This test was added to help evaluate for Covid and Influenza as potential complicating factors in his condition. Progress Note #3: Time: 15:32 Progress Note Patient recieved a room assignment of ICU 21 with Yulia as his nurse. We will have the patient be transported by helicopter to try and get him to the hospital for higher level of care soon as possible. He continued to have hypotension despite the 3 L of fluid and a additional liter of fluid was ordered to be given at 250 mL an hour of the LR. Since he was still having blood pressures under 100 systolic we will start Levophed that 0.1 mcg/kg/min and titrate to have systolic blood pressure above 100. 1641 his urinalysis was reviewed and he did have nitrates present but no other signs of infection. We will continue with the IV fluids and the antibiotics for his sepsis and perirectal abscess would also cover any potential infection in the urine. Med flight helicopter arrived to take report on the patient and transport him to [facility]. Patient had his blood pressure improved to 105/57 on the Levophed. His heart rate is now down to 109 bpm as he is getting his fourth liter of fluids. His nasal swab for Covid and Influenza were both negative to help rule out viral illness in addition to abscess to be causing his sepsis. Diagnostic Imaging Diagonstic Imaging: Xray Plain Films/CT/US/NM/MRI: chest Comments [facility], [place] NAME: GILBERTO LOPEZ [facility] REC#: [id number] PT STATUS: REG ER : 1990 PHYSICIAN: VIKI OROZCO MD ADMIT DATE: 07/19/22/ER FS Draft Date of Exam:07/19/22 CHEST 1 VIEW AP/PA ONLY HISTORY: Fever, history of non-Hodgkin's lymphoma and chemotherapy. COMPARISON: 06/23/2022 TECHNIQUE: Frontal view of the chest. FINDINGS: The right Port-A-Cath tip projects over the cavoatrial junction. Lung volumes are normal. No consolidation is seen. There is no pleural effusion or pneumothorax. The cardiac silhouette is normal in size. There is prominence of the right mediastinum, consistent with lymphadenopathy. IMPRESSION: 1. No acute pulmonary abnormality. 2. Redemonstrated right mediastinal lymphadenopathy. Dictated on workstation # [id number] Dict: 07/19/22 1254 Trans: 07/19/22 1258 CVB [id number] Interpreted by: BRITTANY MORENO MD Electronically signed by: Reviewed: Reviewed by Me ([phone] I personally reviewed the radiologist report on the 1 view chest x-ray) Diagonstic Imaging: CT Plain Films/CT/US/NM/MRI: abdomen, pelvis Comments NAME: GILBERTO LOPEZ [facility] REC#: [id number] PT STATUS: REG ER : 1990 PHYSICIAN: VIKI OROZCO MD ADMIT DATE: 07/19/22/ER FS Draft Date of Exam:07/19/22 CT ABDOMEN/PELVIS W PROCEDURE: CT abdomen and pelvis with contrast. TECHNIQUE: Multiple contiguous axial images were obtained through the abdomen and pelvis after administration of intravenous contrast. Auto Exposure Controls were utilized during the CT exam to meet ALARA standards for radiation dose reduction. All CT scans use one or more of the following dose optimizing techniques: Automated exposure control, MA and/or KvP adjustment based on patient size and exam type or iterative reconstruction. INDICATION: Vomiting, left perirectal pain and swelling, chemotherapy for non-Hodgkin's lymphoma. COMPARISON: 06/02/2022. FINDINGS: Lung bases are clear. The heart is normal in size. The liver demonstrates no focal lesions. Cholecystectomy clips are noted. The spleen appears normal. The pancreas is normal. The adrenal glands are normal. The kidneys demonstrate normal enhancement with no hydronephrosis or masses. The aorta is normal in caliber. No significant lymphadenopathy is seen in the abdomen. The bowel loops are nondistended without obstruction. The appendix is normal. There is mild wall thickening at the rectum. No free fluid or free air is seen. There is a large irregular perianal abscess, predominantly in the left perineum, as well as between the rectum and urethra. This measures up to 10.9 cm AP, 8.2 cm transverse, and 11.1 cm craniocaudal. This contains air and fluid. No acute osseous abnormality is seen. IMPRESSION: 1. Large, irregular, perianal abscess, mostly in the left perineum, containing air and fluid. 2. Mild proctitis. Dictated on workstation # [id number] Dict: 07/19/22 1320 Trans: 07/19/22 1329 [id number] Interpreted by: BRITTANY MORENO MD Electronically signed by: Reviewed: Reviewed by Me ([id number] I personally reviewed the radiologist report for his CT scan abdomen and pelvis with IV contrast) Critical Care Note Critical Care Total Time (minutes) 100 minutes Progress 100 minutes of critical care time was spent with the patient. Time excludes separately billable procedures. Time spent obtaining history from the patient, family, medical records, ordering tests and reviewing results, ordering interventions and reviewing response, discussion with consultants, documentation in the chart. Patient was at risk of hemodynamic compromise with his sepsis, hypotension, neutropenia with fever. He required my direct intervention and monitoring to help manage his hemodynamic status and help with arrangement of transfer. Departure Impression Primary Impression: Sepsis Qualified Codes: A41.9 - Sepsis, unspecified organism Additional Impressions: Dehydration Fever and chills Perirectal cellulitis Neutropenic fever Perirectal abscess Disposition: XFER SHT-TRM HOSP Condition: Critical Transfer Transfer Reason: Exceeds level of care Time Spoke to Accepting Phy: 15:04 Transfer Progress Notes I spoke with Nurse Practitioner Reece Gonzalez at [facility] and reviewed the labs showing he has sepsis and neutropenia as well as CT scan showing perirectal abscess. He would need ICU bed and colorectal surgeon to see about draining and treating the perirectal abscess as well as Oncology to help follow his care with him on Chemotherapy for NHL. He accepted the patient on behalf of Dr. Vergara to be admitted at [facility] in ICU bed. Transfer Facility: [facility] Method of Transfer: Air ([employer] air ambulance transported patient due to concern that he was still hypotensive despite treatment for Sepsis here in ED and wanting to get higher level of care as soon as possible.) Departure-Patient Inst. Referrals: TYRESE DUTTA MD (PCP) Primary Care Physician VIKI OROZCO MD Jul 19, 2022 11:59
[2022-07-19 12:28] LABS: BASOPHILS % (AUTO) 1 % (0-10); EOSINOPHILS % (AUTO) 0 % (0-10); HEMATOCRIT 27 % (40-54); HEMOGLOBIN 9.8 g/dL (13.3-17.7); LYMPHOCYTES # (AUTO) 0.4 10^3/uL (1.0-4.0); LYMPHOCYTES % (AUTO) 50 % (12-44); MEAN CORPUSCULAR HEMOGLOBIN 28 pg (25-34); MEAN CORPUSCULAR HGB CONC 36 g/dL (32-36); MEAN CORPUSCULAR VOLUME 77 fL (80-99); MONOCYTES # (AUTO) 0.1 10^3/uL (0.0-1.0); MONOCYTES % (AUTO) 12 % (0-12); NEUTROPHILS # (AUTO) 0.3 10^3/uL (1.8-7.8); NEUTROPHILS % (AUTO) 37 % (42-75); PLATELET COUNT 299 10^3/uL (130-400)
[2022-07-19 12:32] LABS: WHITE BLOOD COUNT 0.8 10^3/uL (4.3-11.0)
[2022-07-19 12:50] LABS: ALBUMIN 3.5 GM/DL (3.2-4.5); BILIRUBIN,TOTAL 2.3 MG/DL (0.1-1.0); CALCIUM 8.7 MG/DL (8.5-10.1); CREATININE SERUM 0.69 MG/DL (0.60-1.30); POTASSIUM 3.5 MMOL/L (3.6-5.0); TOTAL PROTEIN 6.3 GM/DL (6.4-8.2)
--- NOTE | 2022-07-19 12:58 | Diagnostic Imaging Report ---
HISTORY: Fever, history of non-Hodgkin's lymphoma and chemotherapy. COMPARISON: 06/23/2022 TECHNIQUE: Frontal view of the chest. FINDINGS: The right Port-A-Cath tip projects over the cavoatrial junction. Lung volumes are normal. No consolidation is seen. There is no pleural effusion or pneumothorax. The cardiac silhouette is normal in size. There is prominence of the right mediastinum, consistent with lymphadenopathy. IMPRESSION: 1. No acute pulmonary abnormality. 2. Redemonstrated right mediastinal lymphadenopathy. Dictated by: Dictated on workstation # [id number]
[2022-07-19] MEDS ORDERED: HOLD METFORMIN - RECEIVED CONTRAST 20 ML VIAL IV SCH (13:00)
[2022-07-19] MEDS ORDERED: NS 100 ML (IVPB) BAG IV ONE (13:00)
[2022-07-19] MEDS ORDERED: IOHEXOL 350 MG/ML 100 ML (OMNIPAQUE 350) VIAL IV ONE (13:00)
--- NOTE | 2022-07-19 13:30 | Diagnostic Imaging Report ---
PROCEDURE: CT abdomen and pelvis with contrast. TECHNIQUE: Multiple contiguous axial images were obtained through the abdomen and pelvis after administration of intravenous contrast. Auto Exposure Controls were utilized during the CT exam to meet ALARA standards for radiation dose reduction. All CT scans use one or more of the following dose optimizing techniques: Automated exposure control, MA and/or KvP adjustment based on patient size and exam type or iterative reconstruction. INDICATION: Vomiting, left perirectal pain and swelling, chemotherapy for non-Hodgkin's lymphoma. COMPARISON: 06/02/2022. FINDINGS: Lung bases are clear. The heart is normal in size. The liver demonstrates no focal lesions. Cholecystectomy clips are noted. The spleen appears normal. The pancreas is normal. The adrenal glands are normal. The kidneys demonstrate normal enhancement with no hydronephrosis or masses. The aorta is normal in caliber. No significant lymphadenopathy is seen in the abdomen. The bowel loops are nondistended without obstruction. The appendix is normal. There is mild wall thickening at the rectum. No free fluid or free air is seen. There is a large irregular perianal abscess, predominantly in the left perineum, as well as between the rectum and urethra. This measures up to 10.9 cm AP, 8.2 cm transverse, and 11.1 cm craniocaudal. This contains air and fluid. No acute osseous abnormality is seen. IMPRESSION: 1. Large, irregular, perianal abscess, mostly in the left perineum, containing air and fluid. 2. Mild proctitis. Dictated by: Dictated on workstation # [id number]
[2022-07-19] MEDS ORDERED: LACTATED RINGERS 1,000 ML IV STA (13:55)
[2022-07-19] MEDS ORDERED: metroNIDAZOLE 500MG/100ML IVPB 100 ML IV STA (13:55)
[2022-07-19 15:06] LABS: BILIRUBIN,URINE NEGATIVE (NEGATIVE); CLARITY,URINE CLEAR; COLOR,URINE YELLOW; GLUCOSE, URINE (UA) NEGATIVE (NEGATIVE); KETONES,URINE NEGATIVE (NEGATIVE); LEUKOCYTE ESTERASE ,URINE NEGATIVE (NEGATIVE); NITRITE,URINE POSITIVE (NEGATIVE); PROTEIN,URINE NEGATIVE (NEGATIVE)
[2022-07-19 15:11] LABS: BACTERIA,URINE TRACE /HPF; SQUAMOUS EPITHELIAL CELL,UR RARE /HPF; WBC,URINE 0-2 /HPF
[2022-07-19] MEDS ORDERED: KETOROLAC 30 MG/ML VIAL IVP STA (15:25)
[2022-07-19] MEDS ORDERED: NOREPINEPHRINE 8 MG/250 ML 250 ML IV SCH (16:00)
[2022-07-19] MEDS ORDERED: LACTATED RINGERS 1,000 ML IV SCH (16:00)
[2022-07-19 16:59] VITALS: BP 123/87
== END 2022-07-19 17:01 | disposition short-term general hospital (02) ==
LOC: EDUNIT# 11:30 → ER FS 11:31
DX: A41.9 Sepsis, unspecified organism (principal); E86.0 Dehydration; K61.1 Rectal abscess; D70.9 Neutropenia, unspecified; R50.81 Fever presenting with conditions classified elsewhere; E87.1 Hypo-osmolality and hyponatremia; Z85.71 Personal history of Hodgkin lymphoma; Z92.21 Personal history of antineoplastic chemotherapy; Z20.822 Contact with and (suspected) exposure to COVID-19
CPT/HCPCS: 36415; 71045; 74177; 80053; 81000; 83605; 85025; 86141; 87040; 87088; 87636; 93041; Q9967

== ENCOUNTER → 2022-08-11 | Outpatient (CLI) | payer BC | LOC: WOUNDCARE 09:40 | PROVIDERS: ATTEND Family Medicine | DX: C81.70 Other Hodgkin lymphoma, unspecified site (principal); D70.8 Other neutropenia; D61.810 Antineoplastic chemotherapy induced pancytopenia; D63.8 Anemia in other chronic diseases classified elsewhere; D68.9 Coagulation defect, unspecified; Z11.3 Encounter for screening for infections with a predominantly sexual mode of transmission; Z79.01 Long term (current) use of anticoagulants; Z72.52 High risk homosexual behavior; K61.1 Rectal abscess | CPT/HCPCS: 11042; 97605; G0463 ==

== ENCOUNTER → 2022-08-14 | Outpatient (CLI) | payer BC | LOC: WOUNDCARE 09:52 | PROVIDERS: ATTEND Family Medicine | DX: K61.1 Rectal abscess (principal); Z11.3 Encounter for screening for infections with a predominantly sexual mode of transmission; C81.90 Hodgkin lymphoma, unspecified, unspecified site; D70.8 Other neutropenia; D61.810 Antineoplastic chemotherapy induced pancytopenia; D63.8 Anemia in other chronic diseases classified elsewhere; D68.9 Coagulation defect, unspecified; Z79.01 Long term (current) use of anticoagulants; Z72.52 High risk homosexual behavior; I96 Gangrene, not elsewhere classified | CPT/HCPCS: 97605; G0463; 99212 ==

== ENCOUNTER → 2022-08-16 | Outpatient (CLI) | payer BC | LOC: WOUNDCARE 15:27 | PROVIDERS: ATTEND Family Medicine | DX: S31.000A Unspecified open wound of lower back and pelvis without penetration into retroperitoneum, initial encounter (principal) | CPT/HCPCS: 97605; G0463 ==

== ENCOUNTER → 2022-08-18 | Outpatient (CLI) | payer BC | LOC: WOUNDCARE 09:58 | PROVIDERS: ATTEND Family Medicine | DX: Z11.3 Encounter for screening for infections with a predominantly sexual mode of transmission (principal); L02.91 Cutaneous abscess, unspecified; C81.90 Hodgkin lymphoma, unspecified, unspecified site; D70.8 Other neutropenia; D61.810 Antineoplastic chemotherapy induced pancytopenia; D63.8 Anemia in other chronic diseases classified elsewhere; D68.9 Coagulation defect, unspecified; Z79.01 Long term (current) use of anticoagulants; Z72.52 High risk homosexual behavior; R85.81 Anal high risk human papillomavirus (HPV) DNA test positive; I96 Gangrene, not elsewhere classified | CPT/HCPCS: 11042; 97605; G0463 ==

== ENCOUNTER → 2022-08-21 | Outpatient (CLI) | payer BC | LOC: WOUNDCARE 15:03 | PROVIDERS: ATTEND Family Medicine | DX: S31.000A Unspecified open wound of lower back and pelvis without penetration into retroperitoneum, initial encounter (principal); X58.XXXA Exposure to other specified factors, initial encounter | CPT/HCPCS: 97605; G0463 ==

== ENCOUNTER → 2022-08-23 | Outpatient (CLI) | payer BC | LOC: WOUNDCARE 10:39 | PROVIDERS: ATTEND Family Medicine | DX: S31.000A Unspecified open wound of lower back and pelvis without penetration into retroperitoneum, initial encounter (principal) | CPT/HCPCS: 97605; G0463 ==

== ENCOUNTER → 2022-08-25 | Outpatient (CLI) | payer BC | LOC: WOUNDCARE 10:42 | PROVIDERS: ATTEND Family Medicine | DX: K61.1 Rectal abscess (principal); C81.90 Hodgkin lymphoma, unspecified, unspecified site; D70.8 Other neutropenia; D61.810 Antineoplastic chemotherapy induced pancytopenia; D63.8 Anemia in other chronic diseases classified elsewhere; D68.9 Coagulation defect, unspecified; Z11.3 Encounter for screening for infections with a predominantly sexual mode of transmission; Z79.01 Long term (current) use of anticoagulants; Z72.52 High risk homosexual behavior; R85.81 Anal high risk human papillomavirus (HPV) DNA test positive; I96 Gangrene, not elsewhere classified | CPT/HCPCS: 11042; 97605; G0463 ==

== ENCOUNTER → 2022-08-28 | Outpatient (CLI) | payer BC | LOC: WOUNDCARE 11:00 | PROVIDERS: ATTEND Family Medicine | DX: S31.000A Unspecified open wound of lower back and pelvis without penetration into retroperitoneum, initial encounter (principal); X58.XXXA Exposure to other specified factors, initial encounter | CPT/HCPCS: 97605; G0463 ==

== ENCOUNTER → 2022-08-30 | Outpatient (CLI) | payer BC | LOC: WOUNDCARE 12:20 | PROVIDERS: ATTEND Family Medicine | DX: S31.000A Unspecified open wound of lower back and pelvis without penetration into retroperitoneum, initial encounter (principal); X58.XXXA Exposure to other specified factors, initial encounter | CPT/HCPCS: 97605; G0463 ==

== ENCOUNTER → 2022-09-01 | Outpatient (CLI) | payer BC | LOC: WOUNDCARE 10:42 | PROVIDERS: ATTEND Family Medicine | DX: S31.000A Unspecified open wound of lower back and pelvis without penetration into retroperitoneum, initial encounter (principal) | CPT/HCPCS: 97605; G0463 ==

== ENCOUNTER → 2022-09-04 | Outpatient (CLI) | payer BC | LOC: WOUNDCARE 13:02 | PROVIDERS: ATTEND Family Medicine | DX: S31.000A Unspecified open wound of lower back and pelvis without penetration into retroperitoneum, initial encounter (principal); X58.XXXA Exposure to other specified factors, initial encounter | CPT/HCPCS: 97605; G0463 ==

== ENCOUNTER → 2022-09-06 | Outpatient (CLI) | payer BC | LOC: WOUNDCARE 10:24 | PROVIDERS: ATTEND Family Medicine | DX: S31.000A Unspecified open wound of lower back and pelvis without penetration into retroperitoneum, initial encounter (principal); X58.XXXA Exposure to other specified factors, initial encounter | CPT/HCPCS: 97605; G0463 ==

== ENCOUNTER → 2022-09-08 | Outpatient (CLI) | payer BC | LOC: WOUNDCARE 10:51 | PROVIDERS: ATTEND Family Medicine | DX: Z11.3 Encounter for screening for infections with a predominantly sexual mode of transmission (principal); C81.90 Hodgkin lymphoma, unspecified, unspecified site; D70.8 Other neutropenia; D61.810 Antineoplastic chemotherapy induced pancytopenia; D63.8 Anemia in other chronic diseases classified elsewhere; D68.9 Coagulation defect, unspecified; Z79.01 Long term (current) use of anticoagulants; Z72.52 High risk homosexual behavior; R85.81 Anal high risk human papillomavirus (HPV) DNA test positive; K61.1 Rectal abscess; I96 Gangrene, not elsewhere classified | CPT/HCPCS: 11042; A6197; G0463 ==

== ENCOUNTER → 2022-09-15 | Outpatient (CLI) | payer BC | LOC: WOUNDCARE 10:50 | PROVIDERS: ATTEND Family Medicine | DX: Z11.3 Encounter for screening for infections with a predominantly sexual mode of transmission (principal); C81.70 Other Hodgkin lymphoma, unspecified site; D61.810 Antineoplastic chemotherapy induced pancytopenia; D70.8 Other neutropenia; D63.8 Anemia in other chronic diseases classified elsewhere; D68.9 Coagulation defect, unspecified; Z79.01 Long term (current) use of anticoagulants; Z72.52 High risk homosexual behavior; R85.81 Anal high risk human papillomavirus (HPV) DNA test positive; K61.1 Rectal abscess | CPT/HCPCS: 11042; G0463 ==

== ENCOUNTER → 2022-09-21 | Outpatient (CLI) | payer BC | LOC: WOUNDCARE 10:48 | PROVIDERS: ATTEND Family Medicine | DX: Z11.3 Encounter for screening for infections with a predominantly sexual mode of transmission (principal); C81.70 Other Hodgkin lymphoma, unspecified site; D70.8 Other neutropenia; D61.810 Antineoplastic chemotherapy induced pancytopenia; D63.8 Anemia in other chronic diseases classified elsewhere; D68.9 Coagulation defect, unspecified; Z79.01 Long term (current) use of anticoagulants; Z72.52 High risk homosexual behavior; R85.81 Anal high risk human papillomavirus (HPV) DNA test positive; K61.1 Rectal abscess | CPT/HCPCS: 11042; G0463 ==

== ENCOUNTER → 2022-09-29 | Outpatient (CLI) | payer BC | LOC: WOUNDCARE 08:54 | PROVIDERS: ATTEND Family Medicine | DX: Z11.3 Encounter for screening for infections with a predominantly sexual mode of transmission (principal); C81.90 Hodgkin lymphoma, unspecified, unspecified site; K61.1 Rectal abscess; D70.8 Other neutropenia; D61.810 Antineoplastic chemotherapy induced pancytopenia; D63.8 Anemia in other chronic diseases classified elsewhere; D68.9 Coagulation defect, unspecified; Z79.01 Long term (current) use of anticoagulants; Z72.52 High risk homosexual behavior; B37.2 Candidiasis of skin and nail; R85.81 Anal high risk human papillomavirus (HPV) DNA test positive | CPT/HCPCS: 11042; G0463 ==

== ENCOUNTER → 2022-10-06 | Outpatient (CLI) | payer BC | LOC: WOUNDCARE 09:55 | PROVIDERS: ATTEND Family Medicine | DX: Z11.3 Encounter for screening for infections with a predominantly sexual mode of transmission (principal); K61.1 Rectal abscess; C81.70 Other Hodgkin lymphoma, unspecified site; D70.8 Other neutropenia; D61.810 Antineoplastic chemotherapy induced pancytopenia; D63.8 Anemia in other chronic diseases classified elsewhere; D68.9 Coagulation defect, unspecified; B37.2 Candidiasis of skin and nail; R85.81 Anal high risk human papillomavirus (HPV) DNA test positive; Z79.01 Long term (current) use of anticoagulants; Z72.52 High risk homosexual behavior | CPT/HCPCS: 11042; G0463 ==

== ENCOUNTER → 2022-10-13 | Outpatient (CLI) | payer BC | LOC: WOUNDCARE 10:26 | PROVIDERS: ATTEND Family Medicine | DX: K61.1 Rectal abscess (principal); C81.90 Hodgkin lymphoma, unspecified, unspecified site; D61.810 Antineoplastic chemotherapy induced pancytopenia; D63.8 Anemia in other chronic diseases classified elsewhere; D68.9 Coagulation defect, unspecified; Z79.01 Long term (current) use of anticoagulants; Z11.3 Encounter for screening for infections with a predominantly sexual mode of transmission; Z72.52 High risk homosexual behavior; B37.2 Candidiasis of skin and nail | CPT/HCPCS: 17250; G0463 ==

== ENCOUNTER → 2022-10-27 | Outpatient (CLI) | payer BC | LOC: WOUNDCARE 10:26 | PROVIDERS: ATTEND Family Medicine | DX: Z11.3 Encounter for screening for infections with a predominantly sexual mode of transmission (principal); C81.90 Hodgkin lymphoma, unspecified, unspecified site; D70.8 Other neutropenia; D61.810 Antineoplastic chemotherapy induced pancytopenia; K61.1 Rectal abscess; D63.8 Anemia in other chronic diseases classified elsewhere; D68.9 Coagulation defect, unspecified; R85.81 Anal high risk human papillomavirus (HPV) DNA test positive; Z72.52 High risk homosexual behavior; Z79.01 Long term (current) use of anticoagulants | CPT/HCPCS: 99212 ==

== ENCOUNTER → 2022-12-28 | Outpatient (CLI) | payer BC | LOC: WOUNDCARE 09:32 | PROVIDERS: ATTEND Family Medicine | DX: L24.A0 Irritant contact dermatitis due to friction or contact with body fluids, unspecified (principal); C81.90 Hodgkin lymphoma, unspecified, unspecified site; L98.412 Non-pressure chronic ulcer of buttock with fat layer exposed | CPT/HCPCS: 11042; G0463 ==

== ENCOUNTER → 2023-01-11 | Outpatient (CLI) | payer BC | LOC: WOUNDCARE 09:54 | PROVIDERS: ATTEND Family Medicine | DX: C81.90 Hodgkin lymphoma, unspecified, unspecified site (principal); L24.A0 Irritant contact dermatitis due to friction or contact with body fluids, unspecified; L98.412 Non-pressure chronic ulcer of buttock with fat layer exposed | CPT/HCPCS: 99212 ==

== ENCOUNTER 2023-04-04 23:51 | Emergency (ER) | payer BC ==
[~2023-04-04] VITALS: Ht 190.5 cm; Wt 108.9 kg
[2023-04-05 00:05] VITALS: BP 111/68
[2023-04-05] MEDS ORDERED: NS IV 1000 ML 1,000 ML IV STA (00:07)
--- NOTE | 2023-04-05 00:15 | ED Fever ---
History of Present Illness General Stated Complaint: FEVER| Source: patient, family History of Present Illness Date Seen by Provider: Apr 05, 2023 Time Seen by Provider: 00:01 Initial Comments 32 yo male presenting with complaint of fever to 101 F tonight at home. He did not have anything to lower his temperature. He is 99 on arrival to the ED. He is undergoing chemotherapy for Hodkin's Lymphoma and reports he is due to have treatment in am and 1 more treatment after that and then he was to be done with chemotherapy. He has had mild non productive cough and nasal drainage today. He did a home Covid test that was negative tonight. He had been told to come to the ED if he had a fever so his family brought him in tonight. He follows with Dr. Watts for oncology. 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 on arrival to the ED) Fever Therapy MASK FORMER: none Associated Symptoms: No abdominal pain, No chest pain, No confusion; cough; No diaphoresis, No headache, No muscle aches, No nausea/vomiting, No rash, No shortness of breath, No sore throat, No stiff neck, No syncope, No weakness Allergies and Home Medications Allergies Coded Allergies: No Known Drug Allergies (Unverified , 06/20/22) Patient Home Medication List Home Medication List Reviewed: Yes Aspirin (Aspirin) 325 Mg Tablet, 325 MG PO, (Reported) Entered as Reported by: GARIMA VEGA on 06/07/22 0925 Azithromycin (Azithromycin) 250 Mg Tablet, 250 MG PO DAILY Prescribed by: VIKI OROZCO on 04/05/23 0113 Pantoprazole Sodium (Protonix) 40 Mg Tablet.dr, 40 MG PO DAILY, (Reported) Entered as Reported by: TYRESE VALLE on 06/20/22 0928 Review of Systems Review of Systems Constitutional: No chills; fever EENTM: nose congestion Respiratory: cough Cardiovascular: No chest pain Gastrointestinal: No nausea, No vomiting Genitourinary: No dysuria Musculoskeletal: no symptoms reported Skin: No rash Psychiatric/Neurological: No Symptoms Reported Past Iehhkgz-Apdxir-Xxbaen Hx Immunizations Up To Date First/Initial COVID19 Vaccinat: 2020 Second COVID19 Vaccination Siva: 2020 Third COVID19 Vaccination Date: a Seasonal Allergies Seasonal Allergies: No Past Medical History Surgery/Hospitalization HX: Hodgkin's Lymphoma, Perirectal abscess with sepsis 07/19/2022 Surgeries: Yes (LEFT ARM SX, WISDOM TEETH) Gallbladder, Orthopedic Respiratory: No Currently Using CPAP: No Currently Using BIPAP: No Cardiac: No Neurological: No Reproductive Disorders: No Sexually Transmitted Disease: No Genitourinary: No Gastrointestinal: No Musculoskeletal: Yes (LEFT ARM FX) Fractures Endocrine: No HEENT: Yes (GLASSES) Cancer: Yes (HODGKINS LYMPHOMA) Did You Recieve Any Treatments: Yes Psychosocial: Yes ADD/ADHD, Anxiety Integumentary: Yes (MASS IN CLAVICULAR REGION 05/2022) 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 oz. kg; 25.00 BMI Method: General Appearance: WD/WN, no apparent distress, other (pt seems upset that he has to be in the ED and upset that his chemotherapy is going to have to be delayed due to his fever. ) HEENT: PERRL/EOMI, pharynx normal Neck: non-tender, full range of motion Respiratory: chest non-tender, lungs clear, normal breath sounds, no respiratory distress, no accessory muscle use Cardiovascular: normal peripheral pulses, tachycardia Gastrointestinal: normal bowel sounds, non tender, soft, no pulsatile mass Extremities: normal range of motion, non-tender, normal capillary refill Neurologic/Psychiatric: alert, oriented x 3 Skin: warm/dry, pallor Focused Exam Lactate Level 04/05/23 00:15: Lactic Acid Level 1.53 Lactic Acid Level Laboratory Tests Test 04/05/23 00:15 Lactic Acid Level 1.53 MMOL/L (0.50-2.00) Progress/Results/Core Measures Suspected Sepsis SIRS Temperature: Pulse: Respiratory Rate: Laboratory Tests 04/05/23 00:15: White Blood Count 11.9H Blood Pressure / Mean: 04/05/23 00:15: Lactic Acid Level 1.53 Laboratory Tests 04/05/23 00:15: Creatinine 0.82, Platelet Count 204, Total Bilirubin 0.6 Results/Orders Lab Results Laboratory Tests Test 04/05/23 00:15 04/05/23 00:18 04/05/23 01:02 Range/Units White Blood Count 11.9 H 4.3-11.0 10^3/uL Red Blood Count 3.90 L 4.30-5.52 10^6/uL Hemoglobin 12.0 L 13.3-17.7 g/dL Hematocrit 35 L 40-54 % Mean Corpuscular Volume 90 80-99 fL Mean Corpuscular Hemoglobin 31 25-34 pg Mean Corpuscular Hemoglobin Concent 34 32-36 g/dL Red Cell Distribution Width 15.5 H 10.0-14.5 % Platelet Count 204 130-400 10^3/uL Mean Platelet Volume 10.2 9.0-12.2 fL Immature Granulocyte % (Auto) 2 % Neutrophils (%) (Auto) 70 42-75 % Lymphocytes (%) (Auto) 17 12-44 % Monocytes (%) (Auto) 9 0-12 % Eosinophils (%) (Auto) 2 0-10 % Basophils (%) (Auto) 1 0-10 % Neutrophils # (Auto) 8.3 H 1.8-7.8 10^3/uL Lymphocytes # (Auto) 2.0 1.0-4.0 10^3/uL Monocytes # (Auto) 1.1 H 0.0-1.0 10^3/uL Eosinophils # (Auto) 0.2 0.0-0.3 10^3/uL Basophils # (Auto) 0.1 0.0-0.1 10^3/uL Immature Granulocyte # (Auto) 0.2 H 0.0-0.1 10^3/uL Sodium Level 137 135-145 MMOL/L Potassium Level 3.8 3.6-5.0 MMOL/L Chloride Level 103 98-107 MMOL/L Carbon Dioxide Level 23 21-32 MMOL/L Anion Gap 11 5-14 MMOL/L Blood Urea Nitrogen 5 L 7-18 MG/DL Creatinine 0.82 0.60-1.30 MG/DL Estimat Glomerular Filtration Rate 120 BUN/Creatinine Ratio 6 Glucose Level 109 H 70-105 MG/DL Lactic Acid Level 1.53 0.50-2.00 MMOL/L Calcium Level 8.7 8.5-10.1 MG/DL Corrected Calcium 8.6 8.5-10.1 MG/DL Total Bilirubin 0.6 0.1-1.0 MG/DL Aspartate Amino Transf (AST/SGOT) 26 5-34 U/L Alanine Aminotransferase (ALT/SGPT) 41 0-55 U/L Alkaline Phosphatase 78 40-136 U/L C-Reactive Protein 1.40 H <0.50 MG/DL Total Protein 6.4 6.4-8.2 GM/DL Albumin 4.1 3.2-4.5 GM/DL Influenza Type A (RT-PCR) Not Detected Not Detecte Influenza Type B (RT-PCR) Not Detected Not Detecte SARS-CoV-2 RNA (RT-PCR) Not Detected Not Detecte Urine Color YELLOW Urine Clarity CLEAR Urine pH 7.0 5-9 Urine Specific Eek 1.015 L 1.016-1.022 Urine Protein NEGATIVE NEGATIVE Urine Glucose (UA) NEGATIVE NEGATIVE Urine Ketones NEGATIVE NEGATIVE Urine Nitrite NEGATIVE NEGATIVE Urine Bilirubin NEGATIVE NEGATIVE Urine Urobilinogen 0.2 < = 1.0 MG/DL Urine Leukocyte Esterase NEGATIVE NEGATIVE Urine RBC (Auto) TRACE-I H NEGATIVE Urine RBC RARE /HPF Urine WBC RARE /HPF Urine Squamous Epithelial Cells RARE /HPF Urine Crystals NONE /LPF Urine Bacteria NEGATIVE /HPF Urine Casts NONE /LPF Urine Mucus MODERATE H /LPF Urine Culture Indicated NO My Orders Orders - VIKI OROZCO MD Cbc And Automated Diff (04/05/23 00:06) Comprehensive Metabolic Panel (04/05/23 00:06) Blood Culture (04/05/23 00:06) Ua Culture If Indicated (04/05/23 00:06) Chest 1 View Ap/Pa Only (04/05/23 00:06) Ed Iv/Invasive Line Start (04/05/23 00:06) Crp Fs (04/05/23 00:06) Lactic Acid Analyzer (04/05/23 00:06) Covid 19 Inhouse Test (04/05/23 00:06) Influenza A And B By Pcr (04/05/23 00:06) Ns Iv 1000 Ml (Ns Iv 1000 Ml) (04/05/23 00:07) Implanted Port: Access (04/05/23 00:11) Azithromycin Tablet (Azithromycin Tabl (04/05/23 00:58) Vital Signs/I&O 04/05/23 00:05 Temp 37.2 Pulse 127 Resp 16 B/P (MAP) 111/68 (82) Capillary Refill : Progress Note #1: Progress Note Potential diagnosis of sepsis, influenza, covid, pneumonia, UTI, neutropenic fever. Access implanted port and obtain blood cultures with complete blood count, comprehensive metabolic profile, blood cultures, lactic acid, crp, UA, Covid/Flu swab, chest xray. He is tachycardic at 130 which might be partly from being upset and anxious about being here in the ED. He has O2 sat 94-97% on room air and blood pressure 111/70. Will give NS 1 Liter IVF bolus to start to try and help with tachycardia. Once his labs and tests are back will reach out to Dr. Watts or arts education teacher oncology doctor to see if they want him admitted for IV antibiotics while waiting on cultures or how they want to manage his reported fever at home. Progress Note #2: Time: 00:36 Progress Note On my personal interpretation and review his 1 view chest x-ray shows no acute infiltrate. He does have some chronic perihilar lymphadenopathy. His complete blood count shows a white blood cell count of 11.9 and hemoglobin of 12. He has 204 platelets. His differential shows 70% neutrophils and 17% lymphocytes. 0052 Lactic acid normal at 1.53. heart rate down to 120 as he has IV fluids in fusing. 0055 Flu and Covid are both negative. Comprehensive metabolic profile did not show acute significant electrolyte abnormality. He had mild elevation of CRP to 1.4. I called and discussed his case with Oncologist, Dr. Leslie. As the patient was not showing signs of sepsis and was not neutropenic will be able to send him home. He asked to check with patient and ensure that he is not having recurrence of his perirectal abscess from July 2022. Provided he is not having that then could treat with Azithromycin to cover for possible URI infection. Encourage fluids and hydration. Check back with oncology clinic in am to see when he could reschedule his chemotherapy. When reviewing results and findings with patient and family he adamantly denied having any perineal or perirectal issues. Will proceed with Z pack and give 500 mg dose here in ED. Follow up with Oncology. Diagnostic Imaging Diagonstic Imaging: Xray Plain Films/CT/US/NM/MRI: chest Reviewed: Reviewed by Me Departure Impression Primary Impression: Fever in adult Additional Impressions: Upper respiratory infection Qualified Codes: J06.9 - Acute upper respiratory infection, unspecified Dehydration Disposition: HOME, SELF-CARE Condition: Stable Departure-Patient Inst. Decision time for Depature: 01:13 Referrals: TYRESE DUTTA MD (PCP/Family) Primary Care Physician TAHIRA WATTS Patient Instructions: Upper Respiratory Infection ED, Fever, Adult ED, Dehydration, Adult ED Add. Discharge Instructions: Try to increase your fluid intake to stay better hydrated. Take the full course of antibiotics to help cover for possible bacterial source of upper respiratory infection. Check back with oncology and Dr. Leslie about when to reschedule your chemotherapy. Scripts Azithromycin (Azithromycin) 250 Mg Tablet 250 MG PO DAILY for fever for 4 Days, #4 TAB 0 Refills Prov: VIKI OROZCO MD 04/05/23 VIKI OROZCO MD Apr 05, 2023 00:15
[2023-04-05 00:23] LABS: BASOPHILS # (AUTO) 0.1 10^3/uL (0.0-0.1); BASOPHILS % (AUTO) 1 % (0-10); EOSINOPHILS # (AUTO) 0.2 10^3/uL (0.0-0.3); EOSINOPHILS % (AUTO) 2 % (0-10); HEMATOCRIT 35 % (40-54); LYMPHOCYTES % (AUTO) 17 % (12-44); MEAN CORPUSCULAR HEMOGLOBIN 31 pg (25-34); MEAN CORPUSCULAR HGB CONC 34 g/dL (32-36); MEAN CORPUSCULAR VOLUME 90 fL (80-99); MEAN PLATELET VOLUME 10.2 fL (9.0-12.2); MONOCYTES # (AUTO) 1.1 10^3/uL (0.0-1.0); MONOCYTES % (AUTO) 9 % (0-12); NEUTROPHILS # (AUTO) 8.3 10^3/uL (1.8-7.8); NEUTROPHILS % (AUTO) 70 % (42-75); PLATELET COUNT 204 10^3/uL (130-400); WHITE BLOOD COUNT 11.9 10^3/uL (4.3-11.0)
[2023-04-05 00:50] LABS: BILIRUBIN,TOTAL 0.6 MG/DL (0.1-1.0); CALCIUM 8.7 MG/DL (8.5-10.1); CREATININE SERUM 0.82 MG/DL (0.60-1.30); POTASSIUM 3.8 MMOL/L (3.6-5.0)
[2023-04-05 00:51] LABS: ALBUMIN 4.1 GM/DL (3.2-4.5); TOTAL PROTEIN 6.4 GM/DL (6.4-8.2)
[2023-04-05] MEDS ORDERED: AZITHROMYCIN 250 MG TABLET PO STA (00:58)
[2023-04-05 01:06] LABS: BILIRUBIN,URINE NEGATIVE (NEGATIVE); CLARITY,URINE CLEAR; COLOR,URINE YELLOW; GLUCOSE, URINE (UA) NEGATIVE (NEGATIVE); KETONES,URINE NEGATIVE (NEGATIVE); LEUKOCYTE ESTERASE ,URINE NEGATIVE (NEGATIVE); NITRITE,URINE NEGATIVE (NEGATIVE); PROTEIN,URINE NEGATIVE (NEGATIVE)
[2023-04-05 01:13] LABS: BACTERIA,URINE NEGATIVE /HPF; RBC,URINE RARE /HPF; WBC,URINE RARE /HPF
[2023-04-05] MEDS ORDERED: AZIT250T12 PO (01:13)
[2023-04-05 01:14] LABS: SQUAMOUS EPITHELIAL CELL,UR RARE /HPF
--- NOTE | 2023-04-05 04:30 | Diagnostic Imaging Report ---
Indication: Cough and fever Portable chest 12:06 AM Right IJ Port-A-Cath tip projects over the cavoatrial junction. Heart size and pulmonary vascularity are normal. Lungs are clear. There are no effusions or pneumothoraces. IMPRESSION: No acute abnormalities in the chest Dictated by: Dictated on workstation # [id number]
== END 2023-04-05 01:22 | disposition home or self-care (01) ==
LOC: EDUNIT# 23:51 → ER FS 23:52
DX: J06.9 Acute upper respiratory infection, unspecified (principal); E86.0 Dehydration; R00.0 Tachycardia, unspecified; R79.82 Elevated C-reactive protein (CRP); C81.90 Hodgkin lymphoma, unspecified, unspecified site; Z20.822 Contact with and (suspected) exposure to COVID-19
CPT/HCPCS: 36415; 71045; 80053; 81000; 83605; 85025; 86141; 87040; 87636